=== PATIENT | male | born 1940 | race Caucasian/White ===

== ENCOUNTER 2019-05-12 10:28 | Inpatient (IN) | payer MEDICARE, OTHER ==
[~2019-05-12] VITALS: Ht 180.3 cm; Wt 73.5 kg
[~2019-05-12 10:28] MED LIST: ALBU90OI INH; ALLERCLEAR10 MG PO; ALLERGY PILL; Allopurinol100 MG PO; BUDE10.22 INH; FURO20 PO; HYDCHL25 PO; LEVFLO500 PO; LISI20 PO; MAGOX 400400 MG PO; MONT10T PO; Omega 3 Fish O1 EACH PO; POTA10T PO; ZOCOR20 MG PO
[2019-05-12 12:22] LABS: BASOPHILS ABSOLUTE AUTO 0.05 K/mm3 (0.00-0.23); BASOPHILS PERCENT AUTO 0 % (0-2); EOSINOPHILS ABSOLUTE AUTO 0.01 K/mm3 (0.00-0.68); EOSINOPHILS PERCENT AUTO 0 % (0-6); Hematocrit 36.3 % (37.0-53.0); IMMATURE GRAN ABSOLUTE AUTO 0.15 K/mm3 (0.00-0.10); IMMATURE GRAN PERCENT AUTO 1 % (0-1); LYMPHOCYTES ABSOLUTE AUTO 2.04 K/mm3 (0.84-5.20); LYMPHOCYTES PERCENT AUTO 12 % (21-46); MONOCYTES ABSOLUTE AUTO 2.89 K/mm3 (0.16-1.47); MONOCYTES PERCENT AUTO 16 % (4-13); Mean Corpuscular HGB Conc 33.1 g/dL (31.5-36.5); Mean Corpuscular Volume 100 fL (80-100); Mean Platelet Volume 9.4 fL (9.1-12.4); NEUTROPHILS ABSOLUTE AUTO 12.51 K/mm3 (1.96-9.15); NEUTROPHILS PERCENT AUTO 71 % (41-73); Platelet Count 493 K/mm3 (150-400); RDW Standard Deviation 47.4 fL (35.1-46.3); Red Blood Cell Count 3.64 M/mm3 (4.30-5.90); White Blood Cell Count 17.65 K/mm3 (4.00-11.30)
[2019-05-12 12:38] LABS: International Normalized Ratio 1.07; Prothrombin Time Results 11.4 Sec (9.7-11.5)
[2019-05-12 12:48] LABS: Alanine Aminotransfer (ALT/SGP 36 U/L (12-78); Albumin, Blood 2.7 g/dL (3.4-5.0); Albumin/Globulin Ratio 0.5 (0.8-1.8); Alk Phos 93 U/L (50-136); Anion Gap 8 mmol/L (6-16); Aspartate Aminotrans (AST/SGOT 70 U/L (12-37); Bilirubin, Total 0.7 mg/dL (0.1-1.0); Blood Urea Nitrogen 42 mg/dL (8-24); Bun/Creatinine Ratio 34.4 (12.0-20.0); CO2, Blood 28 mmol/L (21-32); Calcium, Blood 9.7 mg/dL (8.5-10.1); Chloride, Blood 97 mmol/L (98-108); Creatinine, Blood 1.22 mg/dL (0.60-1.20); Globulin, Blood 5.9 g/dL (2.2-4.0); Glomerular Filtration Rate >60 (60-); Glucose, Blood 127 mg/dL (70-99); Potassium, Blood 4.2 mmol/L (3.5-5.5); Sodium, Blood 133 mmol/L (136-145); Total Protein, Blood 8.6 g/dL (6.4-8.2); Troponin I <0.015 ng/mL (0.000-0.040)
[2019-05-12 13:14] LABS: Influenza A Negative (NEGATIVE); Influenza B Negative (NEGATIVE)
[2019-05-12 16:40] LABS: Source, Urine Clean Catch
[2019-05-12 16:50] LABS: Appearance, Urine Clear (Clear); Bilirubin, Urine Neg (Neg); Blood, Urine Neg (Neg); Color, Urine Yellow (P-Yellow); Glucose Qualitative, Urine Neg (Neg); Ketones, Urine 1+ (Neg); Leukocyte Esterase, Urine 1+ (Neg); Nitrite, Urine Neg (Neg); Protein, Urine 2+ (Neg); Urobilinogen, Urine 2+ (Normal)
[2019-05-12 17:03] LABS: Bacteria Few /hpf; Red Blood Cells, Urine 0-2 /hpf (0-2); Squamous Epithelial Cells Few /hpf (Few); White Blood Cells, Urine 0-2 /hpf (0-5)
[2019-05-12] MEDS ORDERED: Aspir 8181 MG PO (17:07)
[2019-05-12] MEDS ORDERED: METO25 PO (17:09)
--- NOTE | 2019-05-12 19:46 | NUR ---
ADMIT NOTE- PT ADMITTED THROUGH THE ED FOR SEPSIS. VS STABLE HR TACHY BUT BP IS WNL. PT HAS FAMILY THAT ARRIVED AT THE BEDSIDE, PROVIDED A PRINTED LIST OF HOME MEDICATIONS PASSED ON TO NIGHT RN IN REPORT. NIGHT RN AWARE ADMIT NOT COMPLETED.
[2019-05-12 22:52] LABS: Adenovirus Not Detected (NOT DETECT); Bordetella pertussis Not Detected (NOT DETECT); Chlamydophila pneumoniae Not Detected (NOT DETECT); Coronavirus 229E Not Detected (NOT DETECT); Coronavirus HKU1 Not Detected (NOT DETECT); Coronavirus NL63 Not Detected (NOT DETECT); Coronavirus OC43 Not Detected (NOT DETECT); Human Metapneumovirus Not Detected (NOT DETECT); Human Rhinovirus/Enterovirus Not Detected (NOT DETECT); Influenza A Not Detected (NOT DETECT); Influenza A/2009-H1 Not Detected (NOT DETECT); Influenza A/H1 Not Detected (NOT DETECT); Influenza A/H3 Not Detected (NOT DETECT); Influenza B Not Detected (NOT DETECT); Mycoplasma pneumoniae Not Detected (NOT DETECT); Parainfluenza Virus 1 Not Detected (NOT DETECT); Parainfluenza Virus 2 Not Detected (NOT DETECT); Parainfluenza Virus 3 Not Detected (NOT DETECT); Parainfluenza Virus 4 Not Detected (NOT DETECT); Respiratory Syncytial Virus Detected (NOT DETECT)
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
[2019-05-13 05:13] LABS: BASOPHILS ABSOLUTE AUTO 0.05 K/mm3 (0.00-0.23); BASOPHILS PERCENT AUTO 0 % (0-2); EOSINOPHILS ABSOLUTE AUTO 0.01 K/mm3 (0.00-0.68); EOSINOPHILS PERCENT AUTO 0 % (0-6); Hematocrit 31.8 % (37.0-53.0); Hemoglobin 10.3 g/dL (13.5-17.5); IMMATURE GRAN ABSOLUTE AUTO 0.08 K/mm3 (0.00-0.10); IMMATURE GRAN PERCENT AUTO 1 % (0-1); LYMPHOCYTES ABSOLUTE AUTO 1.28 K/mm3 (0.84-5.20); LYMPHOCYTES PERCENT AUTO 9 % (21-46); MONOCYTES ABSOLUTE AUTO 2.01 K/mm3 (0.16-1.47); MONOCYTES PERCENT AUTO 14 % (4-13); Mean Corpuscular HGB 32.7 pg (26.0-34.0); Mean Corpuscular HGB Conc 32.4 g/dL (31.5-36.5); Mean Corpuscular Volume 101 fL (80-100); Mean Platelet Volume 9.4 fL (9.1-12.4); NEUTROPHILS PERCENT AUTO 77 % (41-73); Platelet Count 452 K/mm3 (150-400); RDW Standard Deviation 48.7 fL (35.1-46.3); Red Blood Cell Count 3.15 M/mm3 (4.30-5.90); White Blood Cell Count 14.93 K/mm3 (4.00-11.30)
[2019-05-13 05:47] LABS: Alanine Aminotransfer (ALT/SGP 53 U/L (12-78); Albumin, Blood 2.2 g/dL (3.4-5.0); Albumin/Globulin Ratio 0.4 (0.8-1.8); Alk Phos 98 U/L (50-136); Anion Gap 8 mmol/L (6-16); Aspartate Aminotrans (AST/SGOT 88 U/L (12-37); Bilirubin, Total 0.6 mg/dL (0.1-1.0); Blood Urea Nitrogen 33 mg/dL (8-24); Bun/Creatinine Ratio 34.9 (12.0-20.0); CO2, Blood 26 mmol/L (21-32); Calcium, Blood 8.8 mg/dL (8.5-10.1); Chloride, Blood 103 mmol/L (98-108); Creatinine, Blood 0.95 mg/dL (0.60-1.20); Globulin, Blood 5.1 g/dL (2.2-4.0); Glomerular Filtration Rate >60 (60-); Glucose, Blood 125 mg/dL (70-99); Potassium, Blood 3.9 mmol/L (3.5-5.5); Sodium, Blood 137 mmol/L (136-145); Total Protein, Blood 7.3 g/dL (6.4-8.2)
--- NOTE | 2019-05-13 18:03 | NUR ---
SUMMARY- PT ALERT AND ORIENTED. GOT UP WITH PT TODAY, STA IN THE CHAIR APPROX FROM 1500 THROUGH DINNER. ALSO GOT UP TO BEDSIDE COMMODE. PT IS SLOW AND RIGID, ABLE TO SHUFFLE. AFRAID TO FALL. GOOD STRENGTH. TOLERATING FOOD AND FLUIDS. LUNGS DIM IN THE BASES. ROOM AIR. TELE 110'S. HAD ONE PRN FOR HR 110, BROUGHT IT DOWN AND THE BLOOD PRESURE DOWN 91/63- PT ASYMPTOMATIC AND UP IN CHAIR. ANGÉLICA MENDOSA. FAMILY SUPPORTIVE, SON FROM OUT OF TOWN AT BEDSIDE ALL DAY, AND . PT MEDICATED X2 TODAY FOR L SHOULDER PAIN . STATES HE LAID ON IT WRONG DURING HOSP STAY. VICODIN WITH STATED RELEIF
--- NOTE | 2019-05-14 01:04 | NUR ---
INCREASED HEART RATE HOSPICE PHYSICIAN FERNANDO MUÑIZ CALLED AND REPORTED THAT PT'S HEART RATE JUMPED UP TO THE 140'S. CHECKED ON PT. PT SLEEPING AT THE TIME. UPON WAKING PT DENIES ANY SYMPTOMS. PT HAS PO METOPROLOL ORDERED FOR HEART RATE GREATER THAN 110. 25 MG PO METOPROLOL GIVEN. WILL CONTINUE TO MONITOR.
--- NOTE | 2019-05-14 04:46 | NUR ---
SHIFT SUMMARY PT PLEASANT AND COOPERATIVE. PT SLEPT MOST OF THE NIGHT WHEN NOT BEING WOKEN BY STAFF. PT'S HEART RATE IN THE LOW 100'S TO 110'S THROUGHOUT MOST OF THE NIGHT. PT DID HAVE ONE EPISODE WHERE HEART RATE INCREASED TO 140'S FOR A SHORT TIME BUT CAME BACK DOWN TO THE 110'S AFTER PRN PO METOPROLOL. FOREX TRADER STATED THAT RHYTHM DIFFICULT TO INTERPRET. INITIALLY THINKING THAT RHYTHM WAS AFIB OR AFLUTTER BUT UNSURE. CALLING IT AT THIS TIME NARROW QRS TACHYCARDIA. PT INTERMITTENTLY INCONTINENT. BRIEF IN PLACE. MOSTLY USING THE URINAL BUT OCCASSIONALLY NEEDING CHANGED. PT DENIED ANY PAIN THIS EVENING. DRESSINGS TO SMALL WOUNDS ON BUTTOCKS CLEAN, DRY, AND INTACT. OTHERWISE, PT HAD UNEVENTFUL NIGHT. WILL CONTINUE TO MONITOR AND REPORT TO DAY RN.
[2019-05-14 05:36] LABS: BASOPHILS ABSOLUTE AUTO 0.05 K/mm3 (0.00-0.23); BASOPHILS PERCENT AUTO 0 % (0-2); EOSINOPHILS ABSOLUTE AUTO 0.03 K/mm3 (0.00-0.68); EOSINOPHILS PERCENT AUTO 0 % (0-6); Hematocrit 29.9 % (37.0-53.0); Hemoglobin 9.7 g/dL (13.5-17.5); IMMATURE GRAN ABSOLUTE AUTO 0.06 K/mm3 (0.00-0.10); IMMATURE GRAN PERCENT AUTO 1 % (0-1); LYMPHOCYTES ABSOLUTE AUTO 1.35 K/mm3 (0.84-5.20); LYMPHOCYTES PERCENT AUTO 10 % (21-46); MONOCYTES ABSOLUTE AUTO 1.74 K/mm3 (0.16-1.47); MONOCYTES PERCENT AUTO 13 % (4-13); Mean Corpuscular HGB Conc 32.4 g/dL (31.5-36.5); Mean Corpuscular Volume 99 fL (80-100); Mean Platelet Volume 9.7 fL (9.1-12.4); NEUTROPHILS ABSOLUTE AUTO 9.76 K/mm3 (1.96-9.15); NEUTROPHILS PERCENT AUTO 75 % (41-73); Platelet Count 416 K/mm3 (150-400); RDW Standard Deviation 46.7 fL (35.1-46.3); Red Blood Cell Count 3.03 M/mm3 (4.30-5.90); White Blood Cell Count 12.99 K/mm3 (4.00-11.30)
--- NOTE | 2019-05-14 17:38 | NUR ---
SUMMARY- PT ALERT AND ORIENTED. STATES HE IS SLEEPY BECAUSE HE DIDN'T SLEEP LAST NIGHT. PT NAPPED MOST OF THE DAY. DECLINED BREAKFAST AND LUNCH EXCEPT BITES. HE TOLERATED FLUIDS. INCONT OF MOST VOIDS. HAD A SPONGE BATH, BUT REFUSED SHOWER OR TO GET UP IN THE CHAIR. PT HAS BACK PAIN AND L SHOULDER PAIN MEDICATED WITH VICODIN THAT PT STATES RELEIVED PAIN. BLOOD PRESURES BETTER CONTROLLED AND HR REMAINS 110'S MOST OF THE DAY, A FLUTTER.
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
--- NOTE | 2019-05-15 17:35 | NUR ---
PATIENT WAS NPO MOST OF THE DAY LEADING UP TO HIS RENAL BIOPSY. HE WAS FINALLY ABLE TO EAT WHEN HE RETURNED TO HIS ROOM AFTER HIS FINAL CT SCAN. THE PATIENT C/O PAIN TO HIS LEFT SHOULDER EARLIER AND REQUESTED PAIN MEDICATION WITH MINIMAL EFFECTIVENESS; HIS LEFT SIDE APPEARS FLACCID COMPAIRED TO HIS RIGHT. THE PATIENT IS ALERT AND ORIENTED BUTA 2 PERSON MAX ASSIST WITH TRANSFERS. PLEASANT AND COOPERATIVE WITH STAFF. NO ACUTE CHANGES TO REPORT OF AT THIS TIME. WILL CONTINUE TO MONITOR AND PROVIDE CARE NEEDED.
--- NOTE | 2019-05-16 06:46 | NUR ---
SHIFT SUMMARY PATIENT SLIGHTLY CONFUSED OVERNIGHT. HAD NO COMPLAINT OF PAIN. PATIENT WAS TACHYCARDIC OVERNIGHT, CHARGE NURSE NOTIFIED, VITALS TAKEN, PATIENT WAS ASYMPTOMATIC AND DENIED ANY CHEST PAIN OR PRESSURE. IV PATENT AND FLUSHED. BED IN LOWEST POSITION WITH WHEELS LOCKED. CALL LIGHT WITHIN REACH. REPORT GIVEN TO ONCOMING RN.
[2019-05-16 09:26] LABS: Hematocrit 31.1 % (37.0-53.0); Hemoglobin 10.5 g/dL (13.5-17.5)
[2019-05-16 09:54] LABS: Anion Gap 9 mmol/L (6-16); Blood Urea Nitrogen 26 mg/dL (8-24); Bun/Creatinine Ratio 35.4 (12.0-20.0); CO2, Blood 25 mmol/L (21-32); Calcium, Blood 9.4 mg/dL (8.5-10.1); Chloride, Blood 99 mmol/L (98-108); Creatinine, Blood 0.74 mg/dL (0.60-1.20); Glomerular Filtration Rate >60 (60-); Glucose, Blood 130 mg/dL (70-99); Potassium, Blood 3.5 mmol/L (3.5-5.5); Sodium, Blood 133 mmol/L (136-145)
--- NOTE | 2019-05-16 12:50 | NUR ---
PT STARTED SHIFT OUT WITH AN ELEVATED HR RUNNING IN THE 140s. DR NGUYEN WAS NOTIFIED IMMEDIATELY AND INSTRUCTED HR TO BE RECHECKED AFTER PT HAD TAKEN MORNING MEDIATIONS. PT WAS THEN RECHECKED AN HOUR AFTER MEDS WERE GIVEN BY CALLING PCU NURSE. HR WAS STILL IN THE 140s. DR NGUYEN ADDED BP MED AND MADE SOME INCREASED ON MEDICATION TO EMAR. PT WAS GIVEN AND EXTRA 25 MG METOPROLOL SUCCINATE TO MATCH DOSE INCREASE PER DR NGUYEN. HR AT 1207 WAS DOWN TO 114. WILL CONTINUE TO MONITOR.
[2019-05-16 15:10] LABS: A/G RATIO 0.6 (0.7-1.7); ALBUMIN 2.4 g/dL (2.9-4.4); ALPHA-1-GLOBULIN 0.6 g/dL (0.0-0.4); ALPHA-2-GLOBULIN 1.1 g/dL (0.4-1.0); BETA GLOBULIN 0.9 g/dL (0.7-1.3); GAMMA GLOBULIN 1.3 g/dL (0.4-1.8); GLOBULIN, TOTAL 3.8 g/dL (2.2-3.9); IMMUNOGLOBULIN A, QN, SERUM 314 mg/dL (61-437); IMMUNOGLOBULIN G, QN, SERUM 1366 mg/dL (700-1600); IMMUNOGLOBULIN M, QN, SERUM 42 mg/dL (15-143); M-SPIKE Comment: g/dL (Not Observed); PROTEIN, TOTAL, SERUM 6.2 g/dL (6.0-8.5)
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
--- NOTE | 2019-05-16 20:29 | NUR ---
05/16/192019 PT TRANSFERRED TO PCU 6 VIA BED WITH BELONGINGS AND ACCOMPANIED BY SON. CANVAS GOODS SUPERVISORMONIKA CARLSON AT BEDSIDE.
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
--- NOTE | 2019-05-17 08:15 | NUR ---
Shift Summary Pt remains lethargic, confused much of the night. Pt with contracted RUE and appears to have muscle spasms in BLE. Pt incontinent of urine this shift, attends changed and dry at this time. Cardizem gtt infusing at 5 mg/hr at this time - rate between 90-110. BP stable. Concerns this shift regarding pt are as follows: - coarse lungs throughout, weak cough, does not appear in respiratory distress and no changes in oxygen demand noted. Pt remains on RA, unlabored breathing pattern. RT aware. - Family brought concern to this RN regarding pt's recent weight loss. Pt appears frail and profoundly weak. Candy Cutter Hand are weak bilaterally, and pt unable to assist with rolling during repositions. Pt has also had minimal oral intake. - L shoulder pain: pt complains of significant left shoulder pain (refusing medications for pain relief), unable to perform Passive ROM on pt d/t pain. Abduction limited to approx 30 degrees - prior to admission pt able to have full ROM to BUE (per pt and per pt's family). - Overall mentation and appearance is worsening (a concerns the family brought to this RN's attention.) At baseline (two weeks ago) , pt is independant with ADL's and ambulation, at baseline pt is oriented, alert, and has no signs of confusion. This is all per the family at bedside. Based on all previously stated assessment findings, this pt appears to this RN to be declining. This information has been reported to day RN who assumes care, and to the day charge weigher.
--- NOTE | 2019-05-17 12:31 | NUR ---
AM NOTE... ASSUMED CARE OF PT APROX 0700, PT IS A&Ox3 UNABLE TO STATE WHERE HE IS, THE DATE OR THE PRESIDENT. PT IS ON CARDIZEM GTT RUNNINIG AT 5ML/HR. PT'S HR IS IN THE 100'S AFIB. BP IS STABLE AT THIS TIME. PT IS C/O OF WEAKNESS TO HIS HANDS AND LEGS, PT IS UNABLE TO SQUEEZE THIS RN'S HANDS DURING ASSESSMENT STATING IT HURTS TO DO IT. L/S COARSE T/O PT IS ON RA. BT PRESENT AND HYPOACTIVE ABD IS SOFT AND NONTENDER TO PALP. PT'S SON MAHI IS CONCERNED ABOUT MENTAL STATUS, HE STATES INCREASED CONFUSION AND A LARGE INCREASE OF WEAKNESS SINCE YESTERDAY. CALL LIGHT IN REACH WILL CONTINUE TO MONITOR.
--- NOTE | 2019-05-17 17:51 | NUR ---
Pt visit this afternoon. Pt resting in bed upon arrival with Pt's son and Pt's at bedside. Assisted SHOP DIRECTOR Carline with repositioning Pt. Dr Beckwith arrives to discuss plan of care. Dr Beckwith educates on findings, recommendations, and plan of care. Dr Beckwith reports after discussion with oncology docotor both are confident renal mass indicates cancer. Dr Beckwith answers Pt's and family's questions with Pt reporting he would like to pursue treatment aggresively including having kidney remove. Plan is for Pt's RVR to be treated then SNF before having surgery. This RN remained behind to answer questions and listened to concerns. Discussed POLST recently completed with decision to not have hospitalist sign or have implimented. Family requests for Dr Merino come to the hospital for further discussions. No other concerns reported at this time. Spoke with Dr Beckwith by phone and relayed family's request. Dr Beckwith will place oncology consult. Palliative Care will remain available.
--- NOTE | 2019-05-17 18:07 | NUR ---
Initial spiritual care note: Mr. Mckeon was very weak and appears frail. He was sleeping, but awakens to voice. He appeared lucid at time of visit. Son, Jamel and pt's spouse, Dori were present and wanted help with ACP. Advanced Directive and POLST completed. Max did not want heroic measures or aggressive treaments. Son was tearful but appropriate. Advanced Directive signed/witnessed. I hand carried a copy to medical records and several copies made for family. Gentle anticipatory berevement breastfeeding peer counselor provided to good effect. Prayer provided. Family appreciative for education/support. I will remain available.
--- NOTE | 2019-05-17 18:44 | NUR ---
SHIFT SUMMARY... NO ACUTE NEGATIVE CHANGES NOTED THIS SHIFT. PT'S CARDIZEM GTT WAS TURNED OFF APROX 1200, PT HAS MAINTAINED AFIB IN THE 90'S-110'S, VS STABLE. PT STILL HAS MOMENTS OF CONFUSION, SWALLOW STUDY WAS DONE AT BEDSIDE, SPEECH EVAL WAS PLACED TO RULE OUT ASPIRATION. PT AND FAMILY AWARE, HOWEVER PT IS UPSET ABOUT THIS BUT AT THIS TIME IS AGREEABLE WITH PLAN OF CARE. OTHER VS HAVE BEEN STABLE. PT WAS ABLE TO GET UP TO THE BSC WITH 2 P AND FWW, MOD ASSIST. FAMILY AT THE BEDSIDE MOST OF THE SHIFT. ONCOLOGY CONSULT WAS CALLED IN THIS AFTERNOON. CALL LIGHT IN REACH WILL CONTINUE TO MONITOR UNTIL REPORT IS GIVEN TO ONCOMING RN.
--- NOTE | 2019-05-17 19:08 | NUR ---
ASSUMED CARE OF PT AT 1900. REPORT RECEIVED AT BEDSIDE. PT PRESENTS ON BEDSIDE COMMODE. IS ABLE TO MAKE HIS NEEDS KNOWN. MASK INSPECTOR'S IN ROOM TO ASSIST PT BACK TO BED. PT IN NO APPARENT DISTRESS AT THIS TIME. WILL REVIEW CHART AND PLAN OF CARE FOR THIS PT.
--- NOTE | 2019-05-18 | NUR ---
PT WAS ABLE TO TAKE HIS HS MEDS WITH THICKENED FLUIDS. TEACHING OF SAFE SWALLOW WITH CHIN TUCK DONE WITH PT AND WITH ASSIST. PT NEEDS MORE ENCOURAGEMENT AND TEACHING. NO COUGH WITH SWALLOW USING TECHNIQUE.
--- NOTE | 2019-05-18 06:30 | NUR ---
PT CONTINUES ON CARDIZEM DRIP AT 5 MG PER HOUR. VSS. PT HAS TOLERATED ASSISTANCE WITH TURNS IN BED. HAS BEEN INCONTINENT TO URINE AT TIMES THROUGH THE NIGHT. TOOK HIS AM PROTONIX WITH THICKENED FLUIDS. AGAIN NEEDED A LOT OF COACHING AND HANDS ON TO GET PT TO DO CHIN TUCK. WAS ABLE TO SWALLOW WITHOUT COUGH. WILL CONTINUE TO MONITOR PT, AND WILL REPORT OFF TO ONCOMING RN.
--- NOTE | 2019-05-18 08:00 | NUR ---
AM NOTE... ASSUMED CARE OF PT APROX 0700, PT IS A&Ox3 WITH MOMENTS OF FORGETFULNESS/CONFUSION. PT IS ON CARDIZEM GTT 5MG/HR VS STABLE. SWALLOW STUDY ORDERED FOR THIS AM PT IS NPO UNTIL THEN. PT HAS HAS MULTIPLE INCONT EPISODES OF URINE. PT WORKED WITH PT/OT. CALL LIGHT IN REACH WILL CONTINUE MONITOR.
--- NOTE | 2019-05-18 18:25 | NUR ---
Routine spiritual care note: Lengthy visit with pt's spouse and son this afternoon. They expressed worry and fear for pt. Apparently, pt is now adamant that he wants to pursue all medical interventions for healing. Son is trying to honor his father's wishes, but expresses concern that Max will suffer. That said, they are hopeful "this will be an easy surgery to remove his bad kidney." They hope the cancer is easily removed and no further treatment will be required. As of this time, family is uncertain if cancer has spread. Both appear exhausted. Provided theraputic listening, strongly encouraged self-care, and taking one [id number]-time. Pt slept throughout visit and appeared in no distress. Driver Merchandiser services will remain available.
--- NOTE | 2019-05-18 18:44 | NUR ---
SHIFT SUMMARY... NO ACUTE NEGATIVE CHANGES NOTED THIS SHIFT. CARDIZEM GTT WAS TURNED OFF AT APROX 1230, CURRENT RATE IS IN THE 90'S, OTHER VS STABLE. PT WORKED WITH PT/OT THIS SHIFT, FAMILY AT THE BEDSIDE T/O THE DAY. ONCOLOGY WAS CONSULTED AND SAW THE PT TODAY. PT WAS SEEN BY SPEECH THERAPY AND IS TO HAVE SOFT DIET WITH NECTAR THICK FLUIDS BY SPOON. CALL LIGHT IN REACH WILL CONTINUE TO MONITOR UNTIL REPORT IS GIVEN TO ONCOMING RN.
[2019-05-18 19:33] LABS: BASOPHILS ABSOLUTE AUTO 0.03 K/mm3 (0.00-0.23); BASOPHILS PERCENT AUTO 0 % (0-2); EOSINOPHILS ABSOLUTE AUTO 0.08 K/mm3 (0.00-0.68); EOSINOPHILS PERCENT AUTO 1 % (0-6); Hematocrit 29.6 % (37.0-53.0); Hemoglobin 9.6 g/dL (13.5-17.5); IMMATURE GRAN ABSOLUTE AUTO 0.08 K/mm3 (0.00-0.10); IMMATURE GRAN PERCENT AUTO 1 % (0-1); LYMPHOCYTES ABSOLUTE AUTO 1.76 K/mm3 (0.84-5.20); LYMPHOCYTES PERCENT AUTO 13 % (21-46); MONOCYTES ABSOLUTE AUTO 1.57 K/mm3 (0.16-1.47); MONOCYTES PERCENT AUTO 12 % (4-13); Mean Corpuscular HGB Conc 32.4 g/dL (31.5-36.5); Mean Corpuscular Volume 99 fL (80-100); Mean Platelet Volume 9.4 fL (9.1-12.4); NEUTROPHILS ABSOLUTE AUTO 10.01 K/mm3 (1.96-9.15); NEUTROPHILS PERCENT AUTO 74 % (41-73); Platelet Count 465 K/mm3 (150-400); RDW Coefficient Variation 13.1 % (11.7-14.2); White Blood Cell Count 13.53 K/mm3 (4.00-11.30)
[2019-05-18 20:07] LABS: Alanine Aminotransfer (ALT/SGP 54 U/L (12-78); Albumin, Blood 1.9 g/dL (3.4-5.0); Albumin/Globulin Ratio 0.4 (0.8-1.8); Alk Phos 134 U/L (50-136); Anion Gap 5 mmol/L (6-16); Aspartate Aminotrans (AST/SGOT 42 U/L (12-37); Bilirubin, Total 0.6 mg/dL (0.1-1.0); Blood Urea Nitrogen 26 mg/dL (8-24); Bun/Creatinine Ratio 36.2 (12.0-20.0); CO2, Blood 28 mmol/L (21-32); Calcium, Blood 9.4 mg/dL (8.5-10.1); Chloride, Blood 102 mmol/L (98-108); Creatinine, Blood 0.72 mg/dL (0.60-1.20); Globulin, Blood 5.2 g/dL (2.2-4.0); Glomerular Filtration Rate >60 (60-); Glucose, Blood 115 mg/dL (70-99); Potassium, Blood 3.6 mmol/L (3.5-5.5); Sodium, Blood 135 mmol/L (136-145); Total Protein, Blood 7.1 g/dL (6.4-8.2)
--- NOTE | 2019-05-19 05:07 | NUR ---
SHIFT SUMMARY PT VERY SLEEPY THIS EVENING. SLEEPING THROUGH MOST OF THE SHIFT. PT DID WAKE EASILY WHEN WOKEN BY STAFF BUT WOULD QUICKLY FALL BACK ASLEEP WHEN CARE WAS COMPLETE. PT'S SPEECH SLIGHTLY SLURRED AND R FACIAL DROOP NOTED. PT ABLE TO TELL ME HIS NAME AND HIS BIRTHDAY BUT WAS CONFUSED TO WHAT DATE IT WAS OR WHERE HE WAS. PT REMAINED IN BED THROUGHOUT THE NIGHT. INCONTINENT OF URINE. ATTENDS IN PLACE. TURNED AND CHANGED NEEDED. MEPILEX IN PLACE TO LEFT BUTTOCKS, CLEAN, DRY, AND INTACT. OLD WOUNDS NOTED TO R FOOT/BOOKER AND R GREAT TOE AMPUTATED. HEART RATE REMAINED STABLE THIS EVENING IN THE 90'S TO LOW 100'S. SON AT BEDSIDE FOR START OF SHIFT. UPDATE GIVEN. NO ACUTE CHANGES THIS EVENING. WILL CONTINUE TO MONITOR.
--- NOTE | 2019-05-19 16:02 | NUR ---
Met with family to review his decline. They understand his wishes and expression of end of life. Pt placed on comfort care. notified pysician and comfort orders placed. FAmily took break to step out to call family. Sat with pt he was talking to people and became ashen. Called family in he spoke with them then became pale and bradycardic. labored respirations and air hunger small dose of morphine give and pt peacfully . Family assisted with funneral plan and comforted. They donated his cloting and dentures took his phone home.
--- NOTE | 2019-05-19 17:21 | NUR ---
SHIFT SUMMARY PT ALERT AND ORIENTED TO SELF, SITUATION, AND FOLLOWING DIRECTIONS. PT CONFUSED ON PLACE AND DATE. PT REORIENTS EASILY. VS STABLE. HR AFLUTTER 90-110'S. PT COMPLAINED OF PAIN ON AND OFF IN HIS BACK THAT WAS RELIEVED WITH MEDCIATION ADMINISTRATION. PT REPOSITIONED Q2H. PT UP TO CHAIR FOR LUNCH WITH 2 ASSIST AND FWW. FAMILY AT BEDSIDE. WILL CONTINUE TO MONITOR AND REPORT TO ONCOMING RN. CALL LIGHT IN REACH.
[2019-05-20 04:43] LABS: BASOPHILS ABSOLUTE AUTO 0.03 K/mm3 (0.00-0.23); BASOPHILS PERCENT AUTO 0 % (0-2); EOSINOPHILS PERCENT AUTO 1 % (0-6); Hematocrit 32.9 % (37.0-53.0); Hemoglobin 10.4 g/dL (13.5-17.5); IMMATURE GRAN ABSOLUTE AUTO 0.07 K/mm3 (0.00-0.10); IMMATURE GRAN PERCENT AUTO 1 % (0-1); LYMPHOCYTES ABSOLUTE AUTO 1.35 K/mm3 (0.84-5.20); LYMPHOCYTES PERCENT AUTO 11 % (21-46); MONOCYTES ABSOLUTE AUTO 1.37 K/mm3 (0.16-1.47); MONOCYTES PERCENT AUTO 11 % (4-13); Mean Corpuscular HGB 31.3 pg (26.0-34.0); Mean Corpuscular HGB Conc 31.6 g/dL (31.5-36.5); Mean Corpuscular Volume 99 fL (80-100); Mean Platelet Volume 9.7 fL (9.1-12.4); NEUTROPHILS ABSOLUTE AUTO 9.06 K/mm3 (1.96-9.15); NEUTROPHILS PERCENT AUTO 76 % (41-73); Platelet Count 496 K/mm3 (150-400); RDW Coefficient Variation 13.2 % (11.7-14.2); Red Blood Cell Count 3.32 M/mm3 (4.30-5.90); White Blood Cell Count 11.98 K/mm3 (4.00-11.30)
[2019-05-20 05:08] LABS: Magnesium, Blood 1.6 mg/dL (1.6-2.4)
[2019-05-20 05:09] LABS: Alanine Aminotransfer (ALT/SGP 58 U/L (12-78); Albumin, Blood 1.8 g/dL (3.4-5.0); Albumin/Globulin Ratio 0.3 (0.8-1.8); Alk Phos 142 U/L (50-136); Anion Gap 6 mmol/L (6-16); Aspartate Aminotrans (AST/SGOT 47 U/L (12-37); Bilirubin, Total 0.7 mg/dL (0.1-1.0); Blood Urea Nitrogen 27 mg/dL (8-24); Bun/Creatinine Ratio 35.4 (12.0-20.0); CO2, Blood 27 mmol/L (21-32); Calcium, Blood 9.3 mg/dL (8.5-10.1); Chloride, Blood 103 mmol/L (98-108); Creatinine, Blood 0.76 mg/dL (0.60-1.20); Globulin, Blood 5.3 g/dL (2.2-4.0); Glomerular Filtration Rate >60 (60-); Glucose, Blood 121 mg/dL (70-99); Potassium, Blood 3.9 mmol/L (3.5-5.5); Sodium, Blood 136 mmol/L (136-145); Total Protein, Blood 7.1 g/dL (6.4-8.2)
--- NOTE | 2019-05-20 05:33 | NUR ---
SHIFT SUMMARY PT ALERT AND ORIENTED TO SELF; SON AT BEDSIDE APPROXIMATELY 2029; VSS; O2 SATS >93 ON RA; PT UP TO BSC W/ GAIT BELT & FWW; C/O LOWER BACK PAIN AND MEDICATED PER EMAR 1X THIS SHIFT; Q2 TURNS W/ PILLOWS TO RELIEVE PRESSURE; DENIES NEEDS AT THIS TIME; CALL LIGHT IN REACH; BED IN LOWEST POSITION; WILL CONTINUE TO MONITOR CLOSELY UNTIL HAND OFF TO DAY SHIFT RN.
--- NOTE | 2019-05-20 16:33 | NUR ---
SHIFT SUMMARY AND TRANSFER NOTE ASSUMED CARE OF PT AT APPROX 0700. PT RESTING IN BED, WAKES EASILY WITH VERBAL STIMULI; PT A&Ox3; CALM AND COOPERATIVE WITH CARE. 2 PERSON ASSIST WITH FWW AND GB TO RECLINER. PT SOB WITH EXERTION, SPO2 >90% ON RA; TACHYPNIC WITH ACTIVITY. PT DENIES PAIN, CHEST PAIN/PRESSURE, NAUSEA AND DIZZINESS T/O SHIFT. PER TELE PT AFLUTTER AT 106; HR TRENDING UP AT APPROX 1000 AM; MEDICATED WITH SCHEDULE METOPROLOL; TRENDING DOWN AND CURRENTLY AVE 80-90'S. OTHER VSS. NO OTHER ACUTE CHANGES NOTED. TELEPHONE REPORT GIVEN TO MARY ANNE PATINO ON MEDICAL; PT TRANSFERED TO ROOM AT APPROX 1620. ATTEMPTED TO CALL SPOUSE AND SON PER PT REQUEST TO INFORM OF TRANSFER
--- NOTE | 2019-05-20 16:36 | NUR ---
PT ARRIVED TO FLOOR AT 1630. PT SEEMS TIRED ANSWERED WHEN TALKED TO, BUT QUIET. PT GIVEN REMOTE AND BED IN LOWEST POSITION WITH BED ALARM IN PLACE. WILL CONTINUE TO MONITOR.
--- NOTE | 2019-05-20 17:36 | NUR ---
PT RESTING IN BED AT THIS TIME. PT STILL SEEMS TIRED AND DOESN'T REALLY WANT TO TALK MUCH. PT HAS DINNER AND HAS BEEN HARD TO GET INTERESTED IN HIS DINNER DENIES PAIN AT THIS TIME WILL CONTINUE TO MONITOR.
--- NOTE | 2019-05-21 05:40 | NUR ---
INSTRUCTOR EXTENSION WORK SUMMARY NO ACUTE CHANGES THIS SHIFT. PT AAOX3 WITH SOME INTERMITTENT CONFUSION/FORGETFULNESS. PT HAS RESTED MOST OF THE NIGHT. BED ALARM ON FOR SAFETY PT CAN BE IMPULSIVE AT TIMES, HOWEVER PT HAS NOT ATTEMPTED TO GET OUT OF BED WITHOUT ASSISTANCE TONIGHT. TELE HAS SHOWN AFIB/AFLUTTER WITH AN AVG HR OF 90-100. NO COMPLAINTS/CONCERNS FROM PT. AWAITING SNF PLACEMENT POSSIBLY ON WEDNESDAY. VSS, WILL CONTINUE TO MONITOR.
--- NOTE | 2019-05-21 17:10 | NUR ---
PT AOX3 WITH SOME CONFUSION. PT CAN CALL WHEN NEEDED, BUT CAN BE IMPULSIVE IF THE NEED STRIKES HIM. PT WAS A ONE PERSON WITH WALKER AND GATE BELT TO RESTROOM. PT WAS WEAK, BUT DID WELL GOING SLOW. PT DOES NOT FEEL REALLY STRONG WALKING AND NEEDS SOME SUPPORT TO STEADY HIM. PT RESTING IN BED AT THIS TIME AND HAS BED ALARM IN PLACE. PT HAS NOT BEEN EATING WELL AN ENSURE HAS BEEN ADDED TO HIS MEALS TO HELP WITH CALORIE INTAKE. WILL CONTINUE TO MONITOR.
[2019-05-22 05:05] LABS: BASOPHILS ABSOLUTE AUTO 0.05 K/mm3 (0.00-0.23); BASOPHILS PERCENT AUTO 0 % (0-2); EOSINOPHILS ABSOLUTE AUTO 0.16 K/mm3 (0.00-0.68); EOSINOPHILS PERCENT AUTO 1 % (0-6); Hematocrit 30.4 % (37.0-53.0); Hemoglobin 9.9 g/dL (13.5-17.5); IMMATURE GRAN ABSOLUTE AUTO 0.05 K/mm3 (0.00-0.10); IMMATURE GRAN PERCENT AUTO 0 % (0-1); LYMPHOCYTES ABSOLUTE AUTO 1.52 K/mm3 (0.84-5.20); LYMPHOCYTES PERCENT AUTO 12 % (21-46); MONOCYTES ABSOLUTE AUTO 1.37 K/mm3 (0.16-1.47); MONOCYTES PERCENT AUTO 11 % (4-13); Mean Corpuscular HGB 31.8 pg (26.0-34.0); Mean Corpuscular HGB Conc 32.6 g/dL (31.5-36.5); Mean Corpuscular Volume 98 fL (80-100); Mean Platelet Volume 9.6 fL (9.1-12.4); NEUTROPHILS ABSOLUTE AUTO 9.26 K/mm3 (1.96-9.15); NEUTROPHILS PERCENT AUTO 75 % (41-73); Platelet Count 536 K/mm3 (150-400); RDW Coefficient Variation 13.2 % (11.7-14.2); RDW Standard Deviation 47.7 fL (35.1-46.3); Red Blood Cell Count 3.11 M/mm3 (4.30-5.90); White Blood Cell Count 12.41 K/mm3 (4.00-11.30)
--- NOTE | 2019-05-22 05:12 | NUR ---
FREIGHT RATE ANALYST SUMMARY NO ACUTE CHANGES THIS SHIFT. PT AAOX3 WITH SOME INTERMITTENT CONFUSION/FORGETFULNESS. MEDICATED FOR PAIN X1 AT START OF SHIFT PER EMAR. PT HAS BEEN ABLE TO REST THROUGH THE NIGHT. PT DENIES SOB. VSS, WILL CONTINUE TO MONITOR.
[2019-05-22 05:33] LABS: Alanine Aminotransfer (ALT/SGP 53 U/L (12-78); Albumin, Blood 1.9 g/dL (3.4-5.0); Albumin/Globulin Ratio 0.4 (0.8-1.8); Alk Phos 136 U/L (50-136); Anion Gap 6 mmol/L (6-16); Aspartate Aminotrans (AST/SGOT 41 U/L (12-37); Bilirubin, Total 0.5 mg/dL (0.1-1.0); Blood Urea Nitrogen 23 mg/dL (8-24); Bun/Creatinine Ratio 31.9 (12.0-20.0); CO2, Blood 27 mmol/L (21-32); Calcium, Blood 9.2 mg/dL (8.5-10.1); Chloride, Blood 104 mmol/L (98-108); Creatinine, Blood 0.72 mg/dL (0.60-1.20); Globulin, Blood 5.2 g/dL (2.2-4.0); Glomerular Filtration Rate >60 (60-); Glucose, Blood 115 mg/dL (70-99); Potassium, Blood 3.9 mmol/L (3.5-5.5); Sodium, Blood 137 mmol/L (136-145); Total Protein, Blood 7.1 g/dL (6.4-8.2)
--- NOTE | 2019-05-22 19:40 | NUR ---
SHIFT SUMMARY PT STATING HE HASN'T GOTTEN ANY THERAPIES BUT 3 TIMES WHILE HE IS HERE AND WHATS THE POINT OF STAYING HERE. DISCUSSED WITH PT HE HAS BEEN SEEN REGULARLY FOR THE LAST WEEK. OFFERED TO PROVIDE PT A W/C HIS FAMILY CAN PUSH HIM OUTSIDE FOR A BREAK FROM THE ROOM. THIS WAS DONE AND PT TOOK A LONG NAP WHEN HE RETURNED. HAS BEEN UP TO CHAIR 1 OR 2 TIMES TODAY AND HAS BEEN A 1 PERSON ASSIST TO THE BATHROOM USING A FWW AND GAIT BELT. DRESSINGS CHANGED TO BUTTOCK WOUNDS. DR. FARIAS CALLED AND REPORTED HE WOULD BE HERE BETWEEN 78-8 TONIGHT.
--- NOTE | 2019-05-23 04:37 | NUR ---
PHOTOGRAPHIC PROCESSOR SUMMARY PT AAOX3 AND PLEASANT ALTHOUGH IS VERY ANXIOUS TO BE DISCHARGED. DR FARIAS FROM NEUROLOGY IN TO SEE PT AT THE START OF SHIFT. DR FARIAS REPORTED TO THIS RN THAT HE DID NOT SUSPECT GBS AND THAT A LUMBAR PUNCTURE WAS NOT NEEDED AND ASKED THAT THE XARELTO ORDER BE RESTARTED. ALSO RECIEVED ORDERS FOR ADDITIONAL LAB WORK THIS AM. VSS, WILL CONTINUE TO MONITOR.
[2019-05-23 06:25] LABS: Thyroid Stimulating Hormone 1.35 uIU/mL (0.360-4.800)
[2019-05-23] MEDS ORDERED: SENN187 (11:14)
[2019-05-23] MEDS ORDERED: XARELTO20 MG PO (11:15)
[2019-05-23] MEDS ORDERED: METO50ER (11:16)
--- NOTE | 2019-05-23 12:00 | NUR ---
PT TRANSFERRED TO [facility] AT 1140 VIA W/C. HAD BEEN NOTIFIED OF PENDING DISCHARGE AT 1100. REPORT CALLED TO AVEL. PT COOPERATIVE WITH TRANSFER TO W/ AND USED URINAL PRIOR TO DISCHARGING. DRESSINGS INTACT TO BUTTOCKS WITH PHOTOS TAKEN YESTERDAY. TO [facility] VIA W/C.
== END 2019-05-23 11:42 | DRG 871 ==
LOC: ER 10:28 → MEDS 17:44 → PCU 17:44 → MEDS 18:39 → PCU 05-16 20:16 → MEDS 05-20 16:22 → ENPENDDIS 05-23 10:35 → MEDS 05-23 11:42
PROVIDERS: Emergency Medicine; Internal Medicine; Physician Assistant; Psychiatry & Neurology Neurology; ADMIT Internal Medicine
DX: A41.9 Sepsis, unspecified organism (principal); J96.00 Acute respiratory failure, unspecified whether with hypoxia or hypercapnia; J12.1 Respiratory syncytial virus pneumonia; E43 Unspecified severe protein-calorie malnutrition; I48.92 Unspecified atrial flutter; R64 Cachexia; E87.1 Hypo-osmolality and hyponatremia; C64.9 Malignant neoplasm of unspecified kidney, except renal pelvis; I50.32 Chronic diastolic (congestive) heart failure; I11.0 Hypertensive heart disease with heart failure; R65.20 Severe sepsis without septic shock; J44.9 Chronic obstructive pulmonary disease, unspecified; F03.90 Unspecified dementia, unspecified severity, without behavioral disturbance, psychotic disturbance, mood disturbance, and anxiety; M10.9 Gout, unspecified; E78.5 Hyperlipidemia, unspecified; M48.00 Spinal stenosis, site unspecified; D64.9 Anemia, unspecified; I35.0 Nonrheumatic aortic (valve) stenosis; E88.09 Other disorders of plasma-protein metabolism, not elsewhere classified; R91.8 Other nonspecific abnormal finding of lung field; Z51.5 Encounter for palliative care; Z85.46 Personal history of malignant neoplasm of prostate; Z90.79 Acquired absence of other genital organ(s); Z92.21 Personal history of antineoplastic chemotherapy; Z92.3 Personal history of irradiation; Z79.82 Long term (current) use of aspirin; Z79.899 Other long term (current) drug therapy
CPT/HCPCS: 0099U; 36415; 50200; 70450; 70551; 71046; 71250; 72146; 72148; 74177; 77012; 80048; 80053; 81001; 82550; 82607; 82746; 83090; 83605; 83735; 84165; 84443; 84484; 85014; 85018; 85025; 85610; 85651; 85730; 86140; 87040; 87086; 87804; 88305; 88341; 88342; 90686; 92526; 92610; 93005; 93010; 93306; 94640; 94760; 96361; 96374; 97110; 97112; 97162; 97166; 97530; 97535; 99285-25; A9270; A9270-GY; C9113; G0008; J0696; J1644; J7030; Q9967

== ENCOUNTER 2019-09-01 16:30 | Inpatient (IN) | payer OTHER, MEDICARE ==
[~2019-09-01] VITALS: Ht 177.8 cm; Wt 62.1 kg
[~2019-09-01 16:30] MED LIST changes: +Aspir 8181 MG PO; +METO25 PO; +METO50ER PO; +SENN187 PO; +XARELTO20 MG PO
[2019-09-01 17:13] LABS: Hematocrit 34.3 % (37.0-53.0); Hemoglobin 10.9 g/dL (13.5-17.5); Mean Corpuscular HGB 32.3 pg (26.0-34.0); Mean Corpuscular HGB Conc 31.8 g/dL (31.5-36.5); Mean Corpuscular Volume 102 fL (80-100); Mean Platelet Volume 10.4 fL (9.1-12.4); Platelet Count 115 K/mm3 (150-400); RDW Coefficient Variation 16.5 % (11.7-14.2); RDW Standard Deviation 62.6 fL (35.1-46.3); Red Blood Cell Count 3.37 M/mm3 (4.30-5.90); White Blood Cell Count 7.26 K/mm3 (4.00-11.30)
[2019-09-01 17:31] LABS: Albumin, Blood 2.5 g/dL (3.4-5.0); Albumin/Globulin Ratio 0.6 (0.8-1.8); Bilirubin, Total 0.5 mg/dL (0.1-1.0); Bun/Creatinine Ratio 16.9 (12.0-20.0); Calcium, Blood 8.2 mg/dL (8.5-10.1); Creatinine, Blood 1.78 mg/dL (0.60-1.20); Globulin, Blood 3.9 g/dL (2.2-4.0); Potassium, Blood 3.6 mmol/L (3.5-5.5); Total Protein, Blood 6.4 g/dL (6.4-8.2); Troponin I 0.057 ng/mL (0.000-0.040)
[2019-09-01 17:32] LABS: BAND PERCENT MAN 20 % (0-8); BASOPHILS PERCENT MAN 0 % (0-2); EOSINOPHILS PERCENT MAN 0 % (0-6); LYMPHOCYTES PERCENT MAN 7 % (21-46); METAMYELOCYTE ABSOLUTE MAN 0.65 K/mm3 (0.00-0.00); METAMYELOCYTE PERCENT MAN 9 % (0-0); MONOCYTES ABSOLUTE MAN 0.14 K/mm3 (0.16-1.47); MONOCYTES PERCENT MAN 2 % (4-13); NEUTROPHILS ABSOLUTE MAN 5.95 K/mm3 (1.96-9.15); SEG NEUTROPHILS PERCENT MAN 62 % (41-73); TOTAL CELLS COUNTED 100
[2019-09-01 19:07] LABS: International Normalized Ratio 1.25; Prothrombin Time Results 13.2 Sec (9.7-11.5)
--- NOTE | 2019-09-01 23:26 | NUR ---
PCU ADMIT PT BROUGHT TO PCU-04 FROM ER BY BUCK @ APPROX 2120. PT A&O X4. PT ABLE TO STAND AND WEAKLY TURN TO PCU BED, HOLDING ONTO FURNITURE. PER ER TRIAGE NOTE, PT FELL AT BIMART. PT DENIES HAVING FALLEN, STATING "I DIDN'T FALL. I GOT WEAK AND LOWERED MYSELF TO THE GROUND." PT DENIES ANY HX OF FALLS WELL. PT DENIES SOB. DENIES ANY PAIN OR DISCOMFORT. VSS. HEPARIN GTT INFUSING PER ORDERS UPON ARRIVAL TO UNIT FROM ER. MONITOR SHOWS AFIB W/ BBB, HR 90's. SPO2 > 92% ON RA. +3 EDEMA NOTED TO TOP OF R FOOT. WOUND ALSO NOTED TO OUTER R ANKLE W/ PT REPORT OF WOUND BEING A "BED BUG BITE." PHOTO TAKEN OF WOUND AND PLACED IN CHART. PT ALSO W/ R BIG TOE AMPUTATION. BLE COOL AND DUSKY. PULSES PRESENT. PT WEARING JEANS, NOT ALLOWING REMOVAL OF PANTS FOR ASSESSMENT. PT DENIES ANY FURTHER SKIN ISSUES. WHEN ASKING ABOUT LEGS AND BACKSIDE SPECIFICALLY PT STATES, "OH THEY'RE PERFECT." PT ORIENTED TO RM/UNIT. WILL CONTINUE TO MONITOR AND PROVIDE CARE.
[2019-09-02 00:48] LABS: Hematocrit 33.9 % (37.0-53.0); Hemoglobin 10.8 g/dL (13.5-17.5); Mean Corpuscular HGB 32.6 pg (26.0-34.0); Mean Corpuscular HGB Conc 31.9 g/dL (31.5-36.5); Mean Corpuscular Volume 102 fL (80-100); Mean Platelet Volume 10.5 fL (9.1-12.4); Platelet Count 113 K/mm3 (150-400); RDW Coefficient Variation 16.4 % (11.7-14.2); RDW Standard Deviation 62.7 fL (35.1-46.3); Red Blood Cell Count 3.31 M/mm3 (4.30-5.90); White Blood Cell Count 6.46 K/mm3 (4.00-11.30)
[2019-09-02 01:06] LABS: Bun/Creatinine Ratio 15.7 (12.0-20.0); Calcium, Blood 8.3 mg/dL (8.5-10.1); Creatinine, Blood 2.17 mg/dL (0.60-1.20); Potassium, Blood 4.1 mmol/L (3.5-5.5)
[2019-09-02 01:46] LABS: BAND PERCENT MAN 30 % (0-8); BASOPHILS PERCENT MAN 0 % (0-2); EOSINOPHILS PERCENT MAN 0 % (0-6); LYMPHOCYTES ABSOLUTE MAN 0.32 K/mm3 (0.84-5.20); LYMPHOCYTES PERCENT MAN 5 % (21-46); MONOCYTES ABSOLUTE MAN 0.25 K/mm3 (0.16-1.47); MONOCYTES PERCENT MAN 4 % (4-13); NEUTROPHILS ABSOLUTE MAN 5.87 K/mm3 (1.96-9.15); SEG NEUTROPHILS PERCENT MAN 61 % (41-73); TOTAL CELLS COUNTED 100
--- NOTE | 2019-09-02 05:10 | NUR ---
SHIFT SUMMARY PT CONTINUES TO BE A&O X4. VSS. MONITOR SHOWING AFIB BBB, HR 80's-110's. SPO2 > 92% ON RA. PT DENIES CP OR OTHER PAIN/DISCOMFORT THIS SHIFT. PT AWAITING CARDIOLOGY CONSULT. HEPARIN GTT INFUSING PER ORDERS. PT NPO FOR POSSIBLE CATH. WILL CONTINUE TO MONITOR AND PROVIDE CARE UNTIL REPORT OFF TO DAY SHIFT RN.
--- NOTE | 2019-09-02 08:10 | NUR ---
ASSUMED CARE AT 0700, RESTING IN BED SUPINE. A/A/OX4, DENIES CP OR SOB. VSS, HEPARIN INFUSING AT 13UNITS/KG. WILL CONTINUE TO MONITOR.
--- NOTE | 2019-09-02 08:49 | NUR ---
Reviewed the med rec with the patient and his . She has brought in a more recent medication list from his discharge from [facility] on 06/16/2019.
--- NOTE | 2019-09-02 11:43 | NUR ---
echocardiogram complete
--- NOTE | 2019-09-02 18:40 | NUR ---
HEPARIN DC'D PER ORDERS AT 1300.
[2019-09-03 04:38] LABS: BASOPHILS ABSOLUTE AUTO 0.02 K/mm3 (0.00-0.23); BASOPHILS PERCENT AUTO 0 % (0-2); Hematocrit 30.4 % (37.0-53.0); Hemoglobin 9.8 g/dL (13.5-17.5); Mean Corpuscular HGB 31.9 pg (26.0-34.0); Mean Corpuscular HGB Conc 32.2 g/dL (31.5-36.5); Mean Platelet Volume 11.4 fL (9.1-12.4); Platelet Count 90 K/mm3 (150-400); RDW Coefficient Variation 16.3 % (11.7-14.2); RDW Standard Deviation 59.6 fL (35.1-46.3); Red Blood Cell Count 3.07 M/mm3 (4.30-5.90); White Blood Cell Count 8.96 K/mm3 (4.00-11.30)
[2019-09-03 04:41] LABS: EOSINOPHILS ABSOLUTE AUTO 0.01 K/mm3 (0.00-0.68); EOSINOPHILS PERCENT AUTO 0 % (0-6); IMMATURE GRAN ABSOLUTE AUTO 0.04 K/mm3 (0.00-0.10); IMMATURE GRAN PERCENT AUTO 0 % (0-1); LYMPHOCYTES ABSOLUTE AUTO 0.53 K/mm3 (0.84-5.20); LYMPHOCYTES PERCENT AUTO 6 % (21-46); MONOCYTES PERCENT AUTO 10 % (4-13); Mean Corpuscular Volume 99 fL (80-100); NEUTROPHILS ABSOLUTE AUTO 7.46 K/mm3 (1.96-9.15); NEUTROPHILS PERCENT AUTO 83 % (41-73)
[2019-09-03 04:56] LABS: BAND PERCENT MAN 8 % (0-8); BASOPHILS PERCENT MAN 0 % (0-2); EOSINOPHILS PERCENT MAN 0 % (0-6); LYMPHOCYTES ABSOLUTE MAN 0.62 K/mm3 (0.84-5.20); LYMPHOCYTES PERCENT MAN 7 % (21-46); MONOCYTES PERCENT MAN 9 % (4-13); NEUTROPHILS ABSOLUTE MAN 7.52 K/mm3 (1.96-9.15); SEG NEUTROPHILS PERCENT MAN 76 % (41-73); TOTAL CELLS COUNTED 100
[2019-09-03 05:00] LABS: Albumin, Blood 2.1 g/dL (3.4-5.0); Albumin/Globulin Ratio 0.6 (0.8-1.8); Bilirubin, Total 0.9 mg/dL (0.1-1.0); Bun/Creatinine Ratio 17.9 (12.0-20.0); Calcium, Blood 8.1 mg/dL (8.5-10.1); Creatinine, Blood 2.63 mg/dL (0.60-1.20); Globulin, Blood 3.7 g/dL (2.2-4.0); Magnesium, Blood 1.5 mg/dL (1.6-2.4); Potassium, Blood 3.5 mmol/L (3.5-5.5); Total Protein, Blood 5.8 g/dL (6.4-8.2)
[2019-09-03 05:01] LABS: Percent Saturation 3.3 % (20.0-50.0)
[2019-09-03 05:06] LABS: Thyroid Stimulating Hormone 1.59 uIU/mL (0.360-4.800)
--- NOTE | 2019-09-03 05:40 | NUR ---
SHIFT SUMMARY PT A&O X4. VSS. NO EVENTS OVER NIGHT. PT NPO FOR NUC MED TEST THIS AM. WILL CONTINUE TO MONITOR AND PROVIDE CARE UNTIL REPORT OFF TO DAY SHIFT RN.
--- NOTE | 2019-09-03 09:17 | NUR ---
ASSUMED CARE AT 0700, REPORT FROM MONIKA CARBONE. REENTERED ROOM AT APPROX 0720 TO ASSESS VITALS AND SHIFT ASSESMENT. LAYING FLAT SUPINE MOANING, PALE AND DIAPHERETIC, STATES IS HAVING ABD PAIN FROM HUNGER PAINS. CALLED CURB BUILDER TO ROOM PAIN APPEARS OUT OF PORPORTION FOR HUNGER PAINS. BT'S HYPOACTIVE, ABD GUARDED AND PT POINTS TO MID TO UPPER ABDOMEN SOURCE OF PAIN. EKG COMPLETE. DR. MOELLER AND DR. RIOS TO BEDSIDE. MEDICATED WITH 2MG MORPHINE PER DR. MOELLER IV. CT SCAN ORDERED, TAKEN TO CT.
--- NOTE | 2019-09-03 09:24 | NUR ---
DR. LEPE TO BEDSIDE TO DISCUSS SURGERY. VERBAL ORDER GIVEN FOR 2MG IV MORPHINE, 40 MG IV PROTONIX AND D5 FLUIDS TO BE BOLUSED AT THIS TIME.
--- NOTE | 2019-09-03 11:07 | NUR ---
"DAY SURGERY RN | COVID TEST TEST ORDER RECEIVED BY THIS RN. ANITA FRANK OBTAINED SPECIMEN FROM PATIENT IN OR. ORDER PROCESSED AND HAND-DELIVERED TO LAB."
--- NOTE | 2019-09-03 14:40 | NUR ---
RETURNED FROM PACU FOLLOWING SURGERY AT 1315. SLEEPY BUT ARROUSABLE TO VOICE. VSS, JPEG DRAIN AND PICCO DRESSING IN PLACE CLEAN DRY AND INTACT. DENIES PAIN AT THIS TIME. FAMILY AT BEDSIDE, WILL CONTINUE TO MONITOR.
--- NOTE | 2019-09-03 18:18 | NUR ---
SHIFT SUMMARY; LAPROSCOPIC ULCER REPAIR COMPLETE TODAY. RETURNED TO ROOM AT APPROX 1315. SLEEPY IN AFTERNOON WAKING TO VERBAL STIMULI. CONTINUOUS BIOX TO MONITOR SATS, NG INPLACE TO INTERMITANT LOW SUCTION. SIERRA DRAINING CLEAR YELLOW URINE. OTOLARYNGOLOGY REP WITH NO PT ADMINISTRATION DURING SHIFT. KELLY DRESSING IN PLACE CLEAN AND DRY. JPEG DRAIN DRAINING SERISANGUINOUS DRAINAGE. WILL CONTINUE TO MONITOR UNTIL CHANGE OF SHIFT.
--- NOTE | 2019-09-03 22:00 | NUR ---
ASSUMED CARE Report recieved from Suzanne Shell RN and care assumed at 1900. Pt lying in bed, 15 degree elevation. Pt denying pain, VSS, conversing appropriately. Alert and oriented. See shift assessment for detailed systems assessment. Midline incision with dressing intact, red drainage noted to dressing. KELLY wound vac in place. Miguel Rios to bulb suction draining serosang fluid. Vaz cath in place. NG tube to low intermittent suction. Pending stool sample for h pylori, no BM this shift. Pt with oxygenation stable on RA. Uses call light to express needs. Pt tolerating icechips. LADLE REPAIRMAN pump infusing PRN, pt control button within reach. call light within reach. Bed low and locked. No acute concerns to note.
[2019-09-04 04:01] LABS: BASOPHILS ABSOLUTE AUTO 0.02 K/mm3 (0.00-0.23); BASOPHILS PERCENT AUTO 0 % (0-2); Hematocrit 30.9 % (37.0-53.0); Hemoglobin 10.2 g/dL (13.5-17.5); LYMPHOCYTES ABSOLUTE AUTO 0.51 K/mm3 (0.84-5.20); LYMPHOCYTES PERCENT AUTO 8 % (21-46); MONOCYTES ABSOLUTE AUTO 0.32 K/mm3 (0.16-1.47); MONOCYTES PERCENT AUTO 5 % (4-13); Mean Corpuscular HGB 32.3 pg (26.0-34.0); Mean Corpuscular Volume 98 fL (80-100); Mean Platelet Volume 12.3 fL (9.1-12.4); Platelet Count 61 K/mm3 (150-400); RDW Coefficient Variation 16.1 % (11.7-14.2); RDW Standard Deviation 58.6 fL (35.1-46.3); Red Blood Cell Count 3.16 M/mm3 (4.30-5.90); White Blood Cell Count 6.47 K/mm3 (4.00-11.30)
[2019-09-04 04:03] LABS: EOSINOPHILS PERCENT AUTO 0 % (0-6); IMMATURE GRAN ABSOLUTE AUTO 0.04 K/mm3 (0.00-0.10); IMMATURE GRAN PERCENT AUTO 1 % (0-1); NEUTROPHILS ABSOLUTE AUTO 5.58 K/mm3 (1.96-9.15); NEUTROPHILS PERCENT AUTO 86 % (41-73)
[2019-09-04 04:22] LABS: Albumin, Blood 1.8 g/dL (3.4-5.0); Albumin/Globulin Ratio 0.5 (0.8-1.8); Bilirubin, Total 0.7 mg/dL (0.1-1.0); Calcium, Blood 7.7 mg/dL (8.5-10.1); Creatinine, Blood 2.52 mg/dL (0.60-1.20); Globulin, Blood 3.5 g/dL (2.2-4.0); Potassium, Blood 3.6 mmol/L (3.5-5.5); Total Protein, Blood 5.3 g/dL (6.4-8.2)
--- NOTE | 2019-09-04 05:58 | NUR ---
SHIFT SUMMARY No acute events overnight. pt is s/p laproscopic ulcer repair with serina drain to bulb suction with serosang output. KELLY wound vac midline abdomen with dressing containing small amount of red drainage consistant with start of shift. pt compliant with q2 hour turns, sena cath d/c'd this AM, awaiting first void. Jorden consult in place, orders recieved. Plan for renal U/S today per dr. kothari. pt initially admitted for NSTEMI, no acute chest pain or pressure, no events on tele. Pt denies SOB or chest tightness. NG tube to low intermittent suction, little output. Pt consuming 1-2 ice chips every 1-2 hours. minimal PO intact. D5 in LR infusing at 100 mls/hr per orders. No BM this shift, uncollected sample. Per pt, pain has been managed this shift with PRESSURE TANK OPERATOR pump. At rest, pt is groaning but denies uncontrolled pain when asked. No acute changes from initial shift assessment. Will continue to monitor.
--- NOTE | 2019-09-04 13:30 | NUR ---
UPDATE PT WORKING WITH PT AND NG TUBE DISPLACED. DR. LEPE CALLED AND NOTIFIED. NEW ORDERS TO HOLD NG TUBE AND PLACE TOMORROW IF PT NEEDS IT. MORPHINE INSIDE HORTICULTURAL SPECIALTY GROWER DISCONTINUED. WILL CONTINUE TO MONITOR CLOSELY.
--- NOTE | 2019-09-04 14:51 | NUR ---
UPDATE PT ALERT AND ORIENTED AT THIS TIME, WITH SOME MILD CONFUSION. VS STABLE. HR AFIB WITH BBB. BP STABLE. PT DENIES ANY PAIN. PT DENIES ANY NAUSEA AT THIS TIME. PT VOIDED ONCE SINCE SIERRA CATHETER REMOVED AT O530. PT REPOSITIONED Q2H AND NEEDED. LR INFUSING PER ORDERS. REPORT GIVEN TO SURGICAL FLOOR RN. PT TO BE TAKEN OVER BY BED.
--- NOTE | 2019-09-04 15:30 | NUR ---
ARRIVAL TO UNIT PT ARRIVED VIA BED. PLEASANT BUT CONFUSED. SON AT BEDSIDE. SARAH WNL. PICCO VAC MIDLINE HAS SMALL DRAINAGE. DENIES N/V. SMALL AMOUNT ICE CHIPS GIVEN.
--- NOTE | 2019-09-04 19:00 | NUR ---
SUMMARY SINCE ARRIVAL TO UNIT, PT HAS REMAIN CONFUSED BUT REORIENTS EASILY. VOIDING. NO N/V.
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
[2019-09-05 04:01] LABS: Hematocrit 31.8 % (37.0-53.0); Hemoglobin 10.3 g/dL (13.5-17.5)
[2019-09-05 04:18] LABS: Albumin, Blood 1.7 g/dL (3.4-5.0); Anion Gap 10 mmol/L (6-16); Blood Urea Nitrogen 65 mg/dL (8-24); CO2, Blood 23 mmol/L (21-32); Calcium, Blood 8.3 mg/dL (8.5-10.1); Chloride, Blood 105 mmol/L (98-108); Creatinine, Blood 2.83 mg/dL (0.60-1.20); Glomerular Filtration Rate 23 (60-); Glucose, Blood 96 mg/dL (70-99); Magnesium, Blood 2.1 mg/dL (1.6-2.4); Potassium, Blood 4.1 mmol/L (3.5-5.5); Sodium, Blood 138 mmol/L (136-145)
--- NOTE | 2019-09-05 07:26 | NUR ---
SUMMARY PT REQUIRED 2 DOSES OF ATIVAN THIS SHIFT.CALMED TO ACTUALLY ALLOW BLOOD DRAW AND RESTED.NO OTHER ACUTE CHANGES. CONTINUING BED ALARM FOR SAFETY.
--- NOTE | 2019-09-05 14:45 | NUR ---
IV ACCESS IV LEAKING, REMOVED. 3 PERIPHERAL IV ATTEMPTS, 2 FAILED POWERGLIDES. NEW ORDER FOR PICC LINE. AWAITING AVAILABLE PICC RN TO PLACE.
--- NOTE | 2019-09-05 19:12 | NUR ---
ATTEMPTED POWER GLIDE IN R UPPER ARM WITH NO SUCCESS X2. ATTEMPTED IV X4 WITH NO SUCCESS. PTS ARMS ARE VERY EDEMATOUS.
--- NOTE | 2019-09-05 19:26 | NUR ---
SHIFT SUMMARY PT WAS DROWSY AND CONFUSED BEGINNING OF SHIFT. WAS ABLE TO STAND x 2 WITH THERAPY THIS AFTERNOON. BUT BECAME AGITATED, HALLUCINATING, AND ITCHING THIS AFTERNOON. UNABLE TO GET IV ACCESS. DISCUSSED WITH PHOTOGRAPHER MOTION PICTURE SURGEON FOR CENTRAL LINE PLACEMENT. HE WISHES US TO CALL ER DOC FOR PLACEMENT IF AVAILABLE.
[2019-09-06 06:12] LABS: BASOPHILS ABSOLUTE AUTO 0.01 K/mm3 (0.00-0.23); BASOPHILS PERCENT AUTO 0 % (0-2); EOSINOPHILS PERCENT AUTO 0 % (0-6); Hematocrit 32.6 % (37.0-53.0); Hemoglobin 10.5 g/dL (13.5-17.5); IMMATURE GRAN ABSOLUTE AUTO 0.07 K/mm3 (0.00-0.10); IMMATURE GRAN PERCENT AUTO 1 % (0-1); LYMPHOCYTES ABSOLUTE AUTO 0.82 K/mm3 (0.84-5.20); LYMPHOCYTES PERCENT AUTO 6 % (21-46); MONOCYTES ABSOLUTE AUTO 0.91 K/mm3 (0.16-1.47); MONOCYTES PERCENT AUTO 6 % (4-13); Mean Corpuscular HGB 31.9 pg (26.0-34.0); Mean Corpuscular HGB Conc 32.2 g/dL (31.5-36.5); Mean Corpuscular Volume 99 fL (80-100); Mean Platelet Volume 11.8 fL (9.1-12.4); NEUTROPHILS ABSOLUTE AUTO 12.31 K/mm3 (1.96-9.15); NEUTROPHILS PERCENT AUTO 87 % (41-73); Platelet Count 93 K/mm3 (150-400); RDW Coefficient Variation 16.7 % (11.7-14.2); RDW Standard Deviation 61.5 fL (35.1-46.3); Red Blood Cell Count 3.29 M/mm3 (4.30-5.90); White Blood Cell Count 14.12 K/mm3 (4.00-11.30)
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
[2019-09-06 06:29] LABS: Magnesium, Blood 2.3 mg/dL (1.6-2.4)
[2019-09-06 06:30] LABS: Albumin, Blood 1.6 g/dL (3.4-5.0); Albumin/Globulin Ratio 0.5 (0.8-1.8); Bilirubin, Total 0.9 mg/dL (0.1-1.0); Bun/Creatinine Ratio 24.9 (12.0-20.0); Calcium, Blood 7.9 mg/dL (8.5-10.1); Creatinine, Blood 3.09 mg/dL (0.60-1.20); Globulin, Blood 3.5 g/dL (2.2-4.0); Potassium, Blood 3.6 mmol/L (3.5-5.5); Total Protein, Blood 5.1 g/dL (6.4-8.2)
--- NOTE | 2019-09-06 07:46 | NUR ---
NGT PLACED BY DR LEPE TO BE CHECKED BY XRAY PT PLACED IN SOFT WRIST RESTRAINTS TO PREVENT HIM FROM PULLING THEM OUT
--- NOTE | 2019-09-06 12:37 | NUR ---
dr diaz by to see pt picc line to be placed message left with diogenes
--- NOTE | 2019-09-06 12:40 | NUR ---
INITIAL [facility] CARE VISIT: Proxy for med decisions is Jamel hope [phone] Review of EMR done and case conferenced with pt's RN prior to visit. Reviewed, copied and placed pt's recently completed AD on his chart. Pt's current FULL CODE status orders are not in agreement with his advanced directive. He may have had a code status change for his surgical procedure but he is now past that procedure. Per his bedside RN, Pt's mentation is not clear enough to discuss advanced care planning or confirm wishes at this time. He has had worsening renal failure, possible etoh w/d and is very ill with evidence of GI patch leaking after procedure for perforated ulcer, compounding his declining mentation. Pt was admitted with NSTEMI and opted for medical management due to multiple comorbidities and prev stated goals of care. Pt has hx of renal CA and L nephrectomy, asthma, a flutter, CAD and alcholism. His advanced directive was completed in May of 2019, naming sonJamel as his first surrogate decision maker and his SO Dori Turcios as his second decision maker. Her number is [phone]. Pt requested no feeding tube and no life sustaining tx/measures under all four conditions listed in an advanced directive and is experiencing two of those four conditions at this time. Due to evidence of GI patch leakage an NG tube was placed for decompression/drainage. No NG feedings being provided. IV rx & fluids running with new powerglide inserted yesterday due to loss of IV site. ALL of above was discussed with hospitalist during our team mtng. When attempting visit this am pt was sleeping in darkened room. He did not wake to voice or gentle touch. I did not disturb him at that time. Plan to follow for support and advanced care planning with pt if able, son and SO.
--- NOTE | 2019-09-06 13:59 | NUR ---
PT PULLED OFF ABD BINDER WITH RESTRAINTS ON REPLACED UNABLE TO REACH NGT REAJUSTED PT AND ATIVAN GIVAN 0.5MG DOSE
--- NOTE | 2019-09-06 15:38 | NUR ---
PICC LINE PLACED DIETARY PLACED TPN ORDER PT ZAIN WELL
--- NOTE | 2019-09-06 18:42 | NUR ---
PT TRYING TO PULL OUT SARAH AND TRYING TO PULL AT HIS GOWN ATIVAN 0.5MG GIVEN
--- NOTE | 2019-09-06 23:25 | NUR ---
1930 PT RESTING COMFORTABLY IN BED; NG TUBE RIGHT NARE PATENT; WEARING ABD BINDER OVER ABD KELLY DRESSING; PT IS ALERT AND ORIENTED X 1; ABLE TO FOLLOW VERY SIMPLE VERBAL COMMANDS; BILATERAL WRIST RESTRAINTS MAINTAINED.
--- NOTE | 2019-09-07 04:37 | NUR ---
SHIFT SUMMARY: 79 Y/O MALE RESTED COMFORTABLY ALL SHIFT; PT ALERT AND ORIENTED X 2; PT CONTINUES TO REQUIRE BILATERAL WRIST RESTRAINTS DUE PT AT TIMES ATTEMPTING PULL OUT DRAINS/NGT AND IV; PT CURRENTLY NPO; PT HAD ONE EPISODE OF HEART RATE 130 WITH METOPROLOL 5MG IVP GIVEN WITH RESULTING HEART RATE DECREASING TO 105 PER FERNANDO--DRIVE WORKER; PTS ABD KELLY DRESSING DRY AND INTACT WITH ABD BINDER INTACT; YENIFER MARSHALL DRAINING THICK YELLOW MUCOUS; NGT HAS SCANT DRAINAGE NOTED; PT INCONTINENT AND REPOSITIONED BY STAFF EVERY 2 HOURS; TELEMETRY REFLECTS ATRIAL FLUTTER PER FERNANDO--DRIVE WORKER; PT C/O ABD PAIN WITH FACIAL VIEW SCORE 5--MORPHINE SULFATE 2MG IVP GIVEN WITH ADEQUATE PAIN RELIEF FELT; NPO; PT HAS PICC LINE SAGRARIO AND POWER GLIDE LEFT UPPER ARM--UNABLE DRAW BLOOD FROM THIS SITE; BED ALARM APPLIED, BED LOW POSITION WITH CALL LIGHT AT SIDE.
[2019-09-07 05:29] LABS: BASOPHILS ABSOLUTE AUTO 0.02 K/mm3 (0.00-0.23); BASOPHILS PERCENT AUTO 0 % (0-2); EOSINOPHILS ABSOLUTE AUTO 0.08 K/mm3 (0.00-0.68); EOSINOPHILS PERCENT AUTO 1 % (0-6); Hematocrit 30.2 % (37.0-53.0); IMMATURE GRAN ABSOLUTE AUTO 0.16 K/mm3 (0.00-0.10); IMMATURE GRAN PERCENT AUTO 1 % (0-1); LYMPHOCYTES ABSOLUTE AUTO 0.85 K/mm3 (0.84-5.20); LYMPHOCYTES PERCENT AUTO 6 % (21-46); MONOCYTES ABSOLUTE AUTO 0.96 K/mm3 (0.16-1.47); MONOCYTES PERCENT AUTO 7 % (4-13); Mean Corpuscular HGB 32.7 pg (26.0-34.0); Mean Corpuscular HGB Conc 33.1 g/dL (31.5-36.5); Mean Corpuscular Volume 99 fL (80-100); Mean Platelet Volume 12.5 fL (9.1-12.4); NEUTROPHILS ABSOLUTE AUTO 12.68 K/mm3 (1.96-9.15); NEUTROPHILS PERCENT AUTO 86 % (41-73); Platelet Count 98 K/mm3 (150-400); RDW Coefficient Variation 16.9 % (11.7-14.2); RDW Standard Deviation 61.8 fL (35.1-46.3); Red Blood Cell Count 3.06 M/mm3 (4.30-5.90); White Blood Cell Count 14.75 K/mm3 (4.00-11.30)
[2019-09-07 05:32] LABS: Albumin, Blood 1.4 g/dL (3.4-5.0); Anion Gap 7 mmol/L (6-16); Blood Urea Nitrogen 75 mg/dL (8-24); Bun/Creatinine Ratio 25.8 (12.0-20.0); CO2, Blood 24 mmol/L (21-32); Chloride, Blood 110 mmol/L (98-108); Creatinine, Blood 2.91 mg/dL (0.60-1.20); Glomerular Filtration Rate 22 (60-); Glucose, Blood 162 mg/dL (70-99); Magnesium, Blood 2.4 mg/dL (1.6-2.4); Phosphorus, Blood 3.5 mg/dL (2.5-4.9); Potassium, Blood 3.9 mmol/L (3.5-5.5); Sodium, Blood 141 mmol/L (136-145); Triglycerides 234 mg/dL (30-160)
--- NOTE | 2019-09-07 19:23 | NUR ---
SHIFT SUMMARY PT PLEASANT, CONFUSED, A&O1-2. POD4, NG TUBE 200 OUT, SARAH DRAINING SEROUS 30 MLS, PICC SAGRARIO INFUSING TPN, POWERGLIDE STAR SL/ABX. PAIN MANAGED WITH 2 MG MORPHINE. RESTRAINTS AT 0800 09/07. REPORT GIVEN TO ANDREZ FRANK.
--- NOTE | 2019-09-08 02:45 | NUR ---
The BP of 113/93 at 0225 was accidentally submitted. The correct BP was 124/47 at 0228 on 09/08/19.
[2019-09-08 04:33] LABS: BASOPHILS ABSOLUTE AUTO 0.02 K/mm3 (0.00-0.23); BASOPHILS PERCENT AUTO 0 % (0-2); EOSINOPHILS ABSOLUTE AUTO 0.29 K/mm3 (0.00-0.68); EOSINOPHILS PERCENT AUTO 2 % (0-6); Hematocrit 31.6 % (37.0-53.0); Hemoglobin 10.2 g/dL (13.5-17.5); IMMATURE GRAN ABSOLUTE AUTO 0.18 K/mm3 (0.00-0.10); IMMATURE GRAN PERCENT AUTO 1 % (0-1); LYMPHOCYTES ABSOLUTE AUTO 1.08 K/mm3 (0.84-5.20); LYMPHOCYTES PERCENT AUTO 7 % (21-46); MONOCYTES ABSOLUTE AUTO 1.13 K/mm3 (0.16-1.47); MONOCYTES PERCENT AUTO 7 % (4-13); Mean Corpuscular HGB 31.8 pg (26.0-34.0); Mean Corpuscular HGB Conc 32.3 g/dL (31.5-36.5); Mean Corpuscular Volume 98 fL (80-100); Mean Platelet Volume 11.7 fL (9.1-12.4); NEUTROPHILS ABSOLUTE AUTO 13.54 K/mm3 (1.96-9.15); NEUTROPHILS PERCENT AUTO 83 % (41-73); Platelet Count 143 K/mm3 (150-400); RDW Coefficient Variation 16.6 % (11.7-14.2); Red Blood Cell Count 3.21 M/mm3 (4.30-5.90); White Blood Cell Count 16.24 K/mm3 (4.00-11.30)
[2019-09-08 04:50] LABS: Albumin, Blood 1.5 g/dL (3.4-5.0); Albumin/Globulin Ratio 0.4 (0.8-1.8); Bilirubin, Total 0.8 mg/dL (0.1-1.0); Bun/Creatinine Ratio 29.2 (12.0-20.0); Calcium, Blood 8.4 mg/dL (8.5-10.1); Creatinine, Blood 2.74 mg/dL (0.60-1.20); Globulin, Blood 3.6 g/dL (2.2-4.0); Magnesium, Blood 2.6 mg/dL (1.6-2.4); Phosphorus, Blood 3.7 mg/dL (2.5-4.9); Potassium, Blood 3.8 mmol/L (3.5-5.5); Total Protein, Blood 5.1 g/dL (6.4-8.2)
--- NOTE | 2019-09-08 05:26 | NUR ---
SHIFT SUMMARY: MAX IS A&OX1. SOFT RESTRAINTS IN PLACE. ORAL CARE PROVIDED. NG TUBE IN PLACE. MEPILEX TO COCCYX. ATTENDS IN PLACE, INCONTINENT. NPO. VSS, NO ACUTE EVENTS OVERNIGHT. TELE IN PLACE. MEPILEX TO BILATERAL HEELS AND ELBOWS. PICC AND POWERGLIDE PATENT, TPN INFUSING. CALL LIGHT IN REACH. WILL REPORT TO DAY SHIFT RN.
--- NOTE | 2019-09-08 17:05 | NUR ---
SHIFT SUMMARY PT CONFUSED AND SLEEPY TODAY, WAKES AND ANSWERS QUESTIONS WITH ENCOURAGEMENT. NPO; NGT WITH GREEN LIQUID OUTPUT 100 MLS. SARAH WITH 5 MLS OUT. RESTRAINTS TO PREVENT LINES/CORDS PULLED OUT; 09/08 0800. PICC SAGRARIO INFUSING TPN @ 80 MLS/HR. POWERGLIDE STAR. TELE AFLUTTER @ 90S. INCONTINENT/ATTENDS ON. PAIN MANAGED WITH 2 MG MORPHINE. BIOX AT BEDSIDE. WILL REPORT TO ONCOMING BELINDA FRANK.
--- NOTE | 2019-09-08 17:30 | NUR ---
TELEPHONE CALL TO HOSPITALIST WITH RESULTS OF VBG 7.06 AND K 11.3, AFTER RECEIVING TELEPHONE CALL WITH THOSE RESULTS FROM RESPIRATORY.
[2019-09-08 17:35] LABS: Base Excess Venous -13.6 mmol/L; Bicarbonate Venous 13.9 mmol/L (24.0-30.0); PO2 Venous 67.4 mmHg (38-42); pH Blood Venous 7.06 (7.34-7.37)
[2019-09-08 18:39] LABS: PCO2 Arterial 36.7 mmHg (35-45); PO2 Arterial 80.4 mmHg (80-100)
[2019-09-08 19:19] LABS: Troponin I 0.029 ng/mL (0.000-0.040)
[2019-09-08 19:21] LABS: Albumin, Blood 1.4 g/dL (3.4-5.0); Anion Gap 3 mmol/L (6-16); Blood Urea Nitrogen 79 mg/dL (8-24); CO2, Blood 27 mmol/L (21-32); Calcium, Blood 8.1 mg/dL (8.5-10.1); Chloride, Blood 111 mmol/L (98-108); Creatinine, Blood 2.55 mg/dL (0.60-1.20); Glomerular Filtration Rate 26 (60-); Glucose, Blood 178 mg/dL (70-99); Phosphorus, Blood 3.3 mg/dL (2.5-4.9); Potassium, Blood 4.3 mmol/L (3.5-5.5); Sodium, Blood 141 mmol/L (136-145)
--- NOTE | 2019-09-08 19:33 | NUR ---
REPORT PROVIDED TO JUAN FRANK, PT TRANSFERRED TO ICU 13.
--- NOTE | 2019-09-08 20:04 | NUR ---
TELEPHONE CALL TO CORTES [phone] TO RELAY THAT PT HAS BEEN TRANSFERRED TO ICU 13. GAVE HER TELEPHONE NUMBER TO ICU.
[2019-09-08 20:34] LABS: BASOPHILS ABSOLUTE AUTO 0.03 K/mm3 (0.00-0.23); BASOPHILS PERCENT AUTO 0 % (0-2); EOSINOPHILS ABSOLUTE AUTO 0.03 K/mm3 (0.00-0.68); EOSINOPHILS PERCENT AUTO 0 % (0-6); Hematocrit 33.1 % (37.0-53.0); IMMATURE GRAN ABSOLUTE AUTO 0.32 K/mm3 (0.00-0.10); IMMATURE GRAN PERCENT AUTO 1 % (0-1); LYMPHOCYTES ABSOLUTE AUTO 0.83 K/mm3 (0.84-5.20); LYMPHOCYTES PERCENT AUTO 4 % (21-46); MONOCYTES ABSOLUTE AUTO 1.34 K/mm3 (0.16-1.47); MONOCYTES PERCENT AUTO 6 % (4-13); Mean Corpuscular HGB 32.2 pg (26.0-34.0); Mean Corpuscular HGB Conc 33.2 g/dL (31.5-36.5); Mean Corpuscular Volume 97 fL (80-100); Mean Platelet Volume 12.3 fL (9.1-12.4); NEUTROPHILS ABSOLUTE AUTO 20.28 K/mm3 (1.96-9.15); NEUTROPHILS PERCENT AUTO 89 % (41-73); Platelet Count 162 K/mm3 (150-400); RDW Coefficient Variation 16.5 % (11.7-14.2); RDW Standard Deviation 59.2 fL (35.1-46.3); Red Blood Cell Count 3.42 M/mm3 (4.30-5.90); White Blood Cell Count 22.83 K/mm3 (4.00-11.30)
[2019-09-09 04:20] LABS: BASOPHILS ABSOLUTE AUTO 0.04 K/mm3 (0.00-0.23); BASOPHILS PERCENT AUTO 0 % (0-2); EOSINOPHILS ABSOLUTE AUTO 0.13 K/mm3 (0.00-0.68); EOSINOPHILS PERCENT AUTO 1 % (0-6); Hematocrit 30.4 % (37.0-53.0); Hemoglobin 10.2 g/dL (13.5-17.5); IMMATURE GRAN ABSOLUTE AUTO 0.38 K/mm3 (0.00-0.10); IMMATURE GRAN PERCENT AUTO 2 % (0-1); LYMPHOCYTES ABSOLUTE AUTO 1.21 K/mm3 (0.84-5.20); LYMPHOCYTES PERCENT AUTO 6 % (21-46); MONOCYTES ABSOLUTE AUTO 1.64 K/mm3 (0.16-1.47); MONOCYTES PERCENT AUTO 8 % (4-13); Mean Corpuscular HGB 32.7 pg (26.0-34.0); Mean Corpuscular HGB Conc 33.6 g/dL (31.5-36.5); Mean Corpuscular Volume 97 fL (80-100); Mean Platelet Volume 11.9 fL (9.1-12.4); NEUTROPHILS ABSOLUTE AUTO 17.96 K/mm3 (1.96-9.15); NEUTROPHILS PERCENT AUTO 84 % (41-73); Platelet Count 160 K/mm3 (150-400); RDW Coefficient Variation 16.7 % (11.7-14.2); Red Blood Cell Count 3.12 M/mm3 (4.30-5.90); White Blood Cell Count 21.36 K/mm3 (4.00-11.30)
[2019-09-09 04:40] LABS: Albumin, Blood 1.3 g/dL (3.4-5.0); Albumin/Globulin Ratio 0.4 (0.8-1.8); Bilirubin, Total 1.2 mg/dL (0.1-1.0); Bun/Creatinine Ratio 31.6 (12.0-20.0); Calcium, Blood 8.1 mg/dL (8.5-10.1); Creatinine, Blood 2.47 mg/dL (0.60-1.20); Globulin, Blood 3.5 g/dL (2.2-4.0); Magnesium, Blood 2.5 mg/dL (1.6-2.4); Phosphorus, Blood 3.1 mg/dL (2.5-4.9); Potassium, Blood 4.1 mmol/L (3.5-5.5); Total Protein, Blood 4.8 g/dL (6.4-8.2)
--- NOTE | 2019-09-09 04:55 | NUR ---
SHIFT SUMMARY PATIENT HAS SLEPT WELL THRU NIGHT. C/O PAIN ONCE, RELIEVED WITH AVAILABLE MORPHINE. MENTATION HAS IMPROVED, OVERALL APPEARANCE BETTER AFTER A COUPLE HOURS OF FLUIDS INFUSING EARLIER IN SHIFT. RESTRAINTS MAINTAINED, HAS CONTINUED TO ATTEMPT TO REMOVE IT. ASSESSMENT IS CHARTED. VITAL SIGNS STABLE. WILL CONTINUE TO MONITOR.
--- NOTE | 2019-09-09 07:50 | NUR ---
ASSUMED CARE: REPORT RECEIVED FROM JUAN Roach RN. ASSUMED CARE OF THIS PT AT APPROX 0700. ON ASSESSMENT, THE PT IS RESTING QUIETLY. HE AWAKENS EASILY & IS ALERT TO SELF & FOLLOWING SOME DIRECTION. BILAT SOFT WRIST RESTRAINTS IN PLACE FOR CONTINUED ATTEMPTS TO REMOVE NGT & IV LINES BY PT. LS ARE DIM T/O, PT ON RA W/ O2 SATS > 92%. MONITOR SHOWS A FLUTTER W/ HR 80-110s. BP LABILE; SBP 70s ON ASSUMING CARE & QUICKLY INCREASED TO 170s. SEE VS DOCUMENTATION. PT IS NOT SYMPTOMATIC OF THIS BP FLUCTUATION. NGT REMAINS TO LIS, MIN AMNTS YELLOW OUTPUT. SARAH DRAIN TO RLQ W/ MOD AMNTS OF GREEN PURULENT DRAINAGE. SKIN OVERAL FRAGILE, WOUNDS DOCUMENTED. WILL CONTINUE TO MONITOR & UPDATE NEEDED.
--- NOTE | 2019-09-09 08:45 | NUR ---
DR NGUYEN: PROVIDER AT BEDSIDE TO EVAL PT. HE STS THAT LR MAY BE D/C'd. NO OTHER CHANGES & CONTINUE POC PER ROLL REPAIRER, DR CARLISLE. HE IS AGREEABLE THAT PT COULD BE TRANSFERRED BACK TO SURGICAL FLOOR STATUS IF DR CARLISLE AGREES.
--- NOTE | 2019-09-09 17:54 | NUR ---
SHIFT SUMMARY: NO ACUTE CHANGES SINCE PRIOR UPDATES. PT REMAINS A&O TO SELF, FAMILY & FOLLOWING SOME DIRECTIONS. HE IS FREQUENTLY FORGETFUL & NEEDING REORIENTATION. PT ON RA W/ O2 SATS > 92%. MONITOR SHOWS A FLUTTER W/ HR DECREASED SLIGHTLY TO 70-100s AFTER LOPRESSOR PER EMAR. MIDLINE KELLY DRESSING REMAINS CDI W/ WOUND VAC PATENT. SARAH CONTINUES W/ MOD AMNTS OF GREEN, PURULENT, MUCOID DRAINAGE. PT REMAINS INCONTINENT OF BLADDER & VOIDING IN LARGE AMNTS W/ ATTENDS IN PLACE. SKIN CONDITION OVERALL UNCHANGED, Q2H REPOSITIONING TO MAINTAIN SKIN INTEGRITY. PT IS NOW PCU STATUS. WILL CONTINUE TO MONITOR & REPORT OFF TO ONCOMING RN.
--- NOTE | 2019-09-09 20:00 | NUR ---
ASSUMPTION OF CARE: PT IS AWAKE IN BED. SPEECH IS GARBLED, CAN MAKE OUT SOME WORDS. PT IN AFLUTTER. SBP ELEVATED IN THE 190S. HAS LOPRESSOR Q6. HR IN THE 100S. LUNG SOUNDS CLEAR BUT DIM. SPO2 >90% ON RA. NGT TO LIS. PT HAS MIDLINE ABD DRESSING WITH KELLY. PT ALSO HAS A SARAH DRAIN TO RLQ THAT IS PUTTING OUT GREEN BILE. DRESSING IS C/D/I WITH SOME SANGIOUNESS DRAINAGE. PT HAS PICC AND PG. CPN IS INFUSING AT 75MLS/HR. BICARB INFUSING AT 50MLS/HR. WILL CONTINUE TO MONITOR.
--- NOTE | 2019-09-09 22:00 | NUR ---
SPOKE WITH DR MARTINEZ RE PTS ELEVATERD BP. NO ORDERS RECEIVED. DR MARTINEZ STATED HE WOULD LOOK AT THE CHART AND PRESSURES AND ENTER ORDERS.
[2019-09-10 03:43] LABS: Hemoglobin 9.3 g/dL (13.5-17.5)
[2019-09-10 04:01] LABS: Albumin, Blood 1.3 g/dL (3.4-5.0); Anion Gap 6 mmol/L (6-16); Blood Urea Nitrogen 75 mg/dL (8-24); CO2, Blood 29 mmol/L (21-32); Calcium, Blood 8.1 mg/dL (8.5-10.1); Chloride, Blood 110 mmol/L (98-108); Creatinine, Blood 2.27 mg/dL (0.60-1.20); Glomerular Filtration Rate 30 (60-); Glucose, Blood 191 mg/dL (70-99); Magnesium, Blood 2.3 mg/dL (1.6-2.4); Phosphorus, Blood 3.6 mg/dL (2.5-4.9); Potassium, Blood 4.4 mmol/L (3.5-5.5); Sodium, Blood 145 mmol/L (136-145)
--- NOTE | 2019-09-10 06:08 | NUR ---
PT BP ELEVATED. LABETOLOL GIVEN WITH LITTLE EFFECT. JUAN CALLED. ORDERS RECEIVED TO GIVE ONE DOSE HYDRALAZINE NOW.
--- NOTE | 2019-09-10 07:04 | NUR ---
SHIFT SUMMARY: PT AWAKE ON AND OFF T/O NIGHT. WAS ABLE TO FOLLOW COMMANDS AND ANSWER SOME QUESTIONS, HOWEVER SPEECH REMAINS SOMEWHAT GARBLED. PT HTN THIS AM DESPITE LABETOLOL AND HYDRALAZINE. ATIVAN X 1 GIVEN. PT REMAINS ON RA, SATS >90%. NGT TO LIS. SARAH DRAIN HAD SMALL AMT OF GREEN MUCOUS BILE OUT. MIDLINE ABD BANDAGE REMAINS INTACT WITH SMALL AMT OF SANGIOUNESS DRAINAGE THAT HAS REMAINED UNCHANGED T/O SHIFT. BICARB AT 50MLS. CPN AT 80MLS. PT DENIED PAIN T/O SHIFT. WILL PASS REPORT TO ONCOMING RN
[2019-09-10 11:43] LABS: Source, Urine Catheter
[2019-09-10 11:50] LABS: Bilirubin, Urine Neg (Neg); Blood, Urine 5+ (Neg); Glucose Qualitative, Urine Neg (Neg); Ketones, Urine Neg (Neg); Leukocyte Esterase, Urine 3+ (Neg); Nitrite, Urine Neg (Neg); Protein, Urine 2+ (Neg); Specific Gravity, Urine 1.015 (1.003-1.022); Urobilinogen, Urine NORM (Normal)
[2019-09-10 11:55] LABS: Appearance, Urine Hazy (Clear); Color, Urine Yellow (P-Yellow)
[2019-09-10 11:56] LABS: White Blood Cells, Urine 25-50 /hpf (0-5)
[2019-09-10 11:57] LABS: Amorphous Mod (0-Heavy); Bacteria Mod /hpf; Squamous Epithelial Cells Rare /hpf (Few)
--- NOTE | 2019-09-10 19:30 | NUR ---
INITAL SHIFT ASSESSMENT PT IS RESTING WITH EYES CLOSED UPON THIS RN ENTERING ROOM FOR BEDSIDE REPORT. HE WAKES EASILY TO VERBAL STIMULI. SPEECH IS CLEAR AT TIMES AND HE IS ABLE TO ANSWER SOME QUESTIONS. HOWEVER HE IS CONFUSED AT BASELINE. COOPERATIVE WITH TURNING AT THIS TIME AND ASSESSMENT OF ABD. HE IS FAIRLY PALE IN APPERANCE. HAS SOME MOTTLING TO THE TOP OF HIS THIGHS/KNEES. NG TUBE IN PLACE TO LOW INT SUCTION WITH BILE RETURN. PT HAS A ABD BINDER IN PLACE. PICCO VAC TO MIDLINE INCISION. OLD BLOOD NOTED ON DRESSING. SARAH DRAIN TO RIGHT QUADRANT DRAINING GREEN BILE WITH MODERATE OUTPUT. PT IS TENDER TO LIGHT PALPATION IN ALL 4 QUADRANTS. HYPO ACTIVE BOWEL TONES NOTED. SIERRA CATH IN PLACE DRAINING CLEAR YELLOW URINE. NO S/S OF INFECTION TO CATHETER. PAS STOCKINGS IN PLACE. PT HAS EDEMA TO ALL EXTREMITIES AND THEREFORE THEY ARE ELEVATED ON PILLOWS. HEEL AND ELBOW PROTECTIVE DRESSINGS IN PLACE. SOFT BILATERAL WRIST RESTRAITNS IN PLACE. PT DOES EXPRESS HIS STRONG DISLIKE FOR THE RESTRAITNS AND BECOMES VERY AGGITATED WITH HIS BP CUFF. STATES TO LEAVE HIM ALONE. PT HAS A MILD TEMP THEREFORE BLANKETS WERE REMOVED. WILL MONITOR AND TREAT NEEDED. WILL CON'T TO TURN PT T/O SHIFT AND KEEP COMFORTABLE. HE DENIES PAIN CURRENTLY.
--- NOTE | 2019-09-11 00:01 | NUR ---
SHIFT UPDATE PT CON'T TO BE STABLE. HE WAS GIVEN IV PAIN MEDS FOR INCREASED S/S OF PAIN. HE TOLERATED HIS TURN AND REPOSITIONING BETTER WITH LESS AGGITATION. HE WAS ABLE TO HELP WITH THIS TURN. VITALS REMAIN STABLE. NO CHANGES WITH NG OR SARAH DRAINAGE. TEMP DECREASED TO WNL WITH REMOVAL OF BLANKET. LUCINA WRIST RESTRAINTS CON'T TO BE IN PLACE. NO SKIN ISSUES. WILL CON'T TO MONITOR AND KEEP PT SAFE.
[2019-09-11 03:37] LABS: Hematocrit 27.1 % (37.0-53.0)
[2019-09-11 03:50] LABS: Albumin, Blood 1.3 g/dL (3.4-5.0); Anion Gap 6 mmol/L (6-16); Blood Urea Nitrogen 77 mg/dL (8-24); Bun/Creatinine Ratio 34.8 (12.0-20.0); CO2, Blood 32 mmol/L (21-32); Chloride, Blood 108 mmol/L (98-108); Creatinine, Blood 2.21 mg/dL (0.60-1.20); Glomerular Filtration Rate 31 (60-); Glucose, Blood 147 mg/dL (70-99); Magnesium, Blood 2.4 mg/dL (1.6-2.4); Phosphorus, Blood 4.4 mg/dL (2.5-4.9); Potassium, Blood 4.8 mmol/L (3.5-5.5); Sodium, Blood 146 mmol/L (136-145)
--- NOTE | 2019-09-11 05:14 | NUR ---
SHIFT SUMMARY PT CON'T TO BE STABLE WITH NO CHANGES FROM BASELINE. HE HAS BEEN PLESANT AND COOPERTIVE T/O SHIFT. HE IS HELPING TO RE-POSITION T/O MORNING SHIFT. NO CHANGE TO ABD STATUS. SARAH DRAIN HAS HAD MINIMAL OUTPUT. NG ALSO HAS HAD VERY MINIMAL OUTPUT AND PT HAS DENIED FEELING NAUSEATED T/O SHIFT. CON'T TO BE GREEN LIQUID. SIERRA CATH CON'T TO BE PATENT DRAINING YELLOW URINE. PT HAS LUCINA WRIST RESTRAINTS IN PLACE. NO CHANGES TO SKIN CONDITION. PT CON'T TO HAVE TPN RUNNING INTO RIGHT UPPER ARM PICC LINE. WILL CON'T TO MONITOR AND KEEP PT SAFE TILL REPORT TO ONCOMING RN. PT IS NOT USING CALL LIGHT BUT IT IS WITHIN REACH.
--- NOTE | 2019-09-11 07:58 | NUR ---
PT MORE ALERT AND COMMUNICATING TOAY. ARMOND ABD. PAIN BUT TENDER TO PALPATION. SARAH PURULANT BILE COLOR. INCISION D/I. CPN AT 80 ML VIA PICC LINE. WILL CONT TO RESTRAIN PT FOR NOW UNTIL ABLE TO CONFIRM MENTAL STATUS FOR PT SAFETY. VSS. RYTHUM LOOKS SINUS WIH 1ST DEGREE AV. RIGO PATENT. PAS ON.
--- NOTE | 2019-09-11 10:43 | NUR ---
TO CT PER BED WTIH STEFFANIE.
--- NOTE | 2019-09-11 12:49 | NUR ---
Attempted to see pt this am. He was on his way to CT for f/u CT per PN. Pt may be transferred out of ICU today per ICU staff. Will follow.
--- NOTE | 2019-09-11 17:07 | NUR ---
DR NGUYEN IN TO CHECK ON PT AND ASSESS STATUS. PT HAS REMAINED MORE VERBAL TODAY, HOWEVER THERE HAS BEEN SOME UNDERLYING CONFUSION REMAINING. HAS BEEN ABLE TO MAKE WISHES KNOW BETTER TODAY AND MORE VERBAL RE PAIN AND RESP STATUS. VSS. I/O NOTED. SARAH DRAINAGE NOTED AND UNCHANGED THIS SHIFT WITH DR LEPE IN EARLIER. PT HAS REMAINED IN SINUS WITH 1ST DEGREE AV BLOCK THIS SHIFT.
--- NOTE | 2019-09-11 20:00 | NUR ---
ASSUMED CARE: PT WITH SOME CONFUSION BUT ABLE TO VERBALIZE MORE. IN AFIB WITH 1DEGREE HB. ON RA. LUNG SOUDNS ARE CELAR. PT IS STRICT NPO AND NGT NEEDS TO BE PROTECTED D/T PT ATTEMPTING TO PULL ON IT. ABD DRESSING D/I. SMALL AMT OF SANGIOUNESS FLUID ON DRESSING. HOWEVER IT IS OLD AND UNCHANGED. SARAH DRAIN PRODUCING GREEN MUCOUCY BILE. PICC TO SAGRARIO AND PG STAR. CPN INFUSING AT 80MLS/HR. SIERRA IN PLACE. WILL CONTINUE TO MONITOR
[2019-09-12 04:08] LABS: Hemoglobin 8.6 g/dL (13.5-17.5)
[2019-09-12 04:27] LABS: Albumin, Blood 1.5 g/dL (3.4-5.0); Anion Gap 5 mmol/L (6-16); Blood Urea Nitrogen 65 mg/dL (8-24); Bun/Creatinine Ratio 31.1 (12.0-20.0); CO2, Blood 32 mmol/L (21-32); Chloride, Blood 110 mmol/L (98-108); Creatinine, Blood 2.09 mg/dL (0.60-1.20); Glomerular Filtration Rate 33 (60-); Glucose, Blood 149 mg/dL (70-99); Magnesium, Blood 2.6 mg/dL (1.6-2.4); Phosphorus, Blood 4.4 mg/dL (2.5-4.9); Potassium, Blood 4.6 mmol/L (3.5-5.5); Sodium, Blood 147 mmol/L (136-145)
--- NOTE | 2019-09-12 07:06 | NUR ---
SHIFT SUMMARY: NO ACUTE CHANGES T/O SHIFT. PT ABLE TO FOLLOW MORE COMMANDS. DID NOT SLEEP WELL T/O SHIFT. REQUESTED 1 NEB TX AND REQ PAIN MEDS PER MAY X 2. WILL PASS REPORT TO ONCOMING SHIFT
--- NOTE | 2019-09-12 07:27 | NUR ---
Received report from Jamaal FRANK. patient lying supine in bed with HOB at 20 derees. He is awake and speech garbled and difficult to understand. He is on 2L O2 via VC at 100%sats and turned to RA and remains at 98% sats. He denies any pain or need for intervention. He has 20ga PowerGlide in STAR dressing intact and site WNL's flushed and SL'd. He also has PICC line in SAGRARIO dressing intact and site WNL's and is infusing CPN at 80ml/hr. He has SCD's bilaterlly to LE's. He has lower Abd. midline surgical site with gauze and clear op site dressing with quarter size blood spot that has not got bigger. There is a enedelia drain and SARAH draing to right of site. He has abdominal binder in place. He has OG to LIS with yellow and brown output
--- NOTE | 2019-09-12 09:50 | NUR ---
Patient continues ot rest and is cooperative with care. Medicated for abdominal pain 08/[address] Conn by and states ok to transfer to surgical floor. Abdominal site C/D/I. CPN and abx continue.
--- NOTE | 2019-09-12 11:30 | NUR ---
Patient has been resting well and moving extremities in bed while awake. PT by and worked with patient and stated he did well. VSS, See EMR. He remains on RA and sats in the mid to upper 90's. Abdomen site C/D/I and drains small amounts. He will be transferring to Surgical floor. SCD's in place. Vaz draing to gravity.
--- NOTE | 2019-09-12 12:16 | NUR ---
Pal Care Visit: Pt in ICU 13, lying flat in bed. He is awake and conversant, pleasant in exchange of greetings. He reports that he does not have any pain or nausea. EMR reviewed. Pt is surgical floor status now and may be transferred out of ICU. Pt remains NPO with TPN for nutrition. Pal Care will cont to follow from a distance.
--- NOTE | 2019-09-12 13:30 | NUR ---
TRANSFER TO SURG FLOOR PT ARRIVES AND TRANSFERRED TO BED BY SLIDER SHEET AND 4 PERSON ASSIST. ORIENTED TO SELF, PLACE, EVENT, AND SURROUNDINGS. NGT HOOKED TO LIS. GREEN BILE RETURN. ALSO GREEN BILE NOTED TO SARAH. MIDLINE KELLY WNL. DENIES PAIN.
--- NOTE | 2019-09-12 17:00 | NUR ---
NGT PT FOUND TO HAVE PULLED OUT NGT; UNWITNESSED.
--- NOTE | 2019-09-12 18:20 | NUR ---
NGT PLACED. WITH SOME DIFFICULTY. AWAITING IMAGING RESULT BEFORE APPLYING LIS.
[2019-09-13 04:15] LABS: BASOPHILS ABSOLUTE AUTO 0.07 K/mm3 (0.00-0.23); BASOPHILS PERCENT AUTO 1 % (0-2); EOSINOPHILS ABSOLUTE AUTO 0.17 K/mm3 (0.00-0.68); EOSINOPHILS PERCENT AUTO 1 % (0-6); Hemoglobin 8.7 g/dL (13.5-17.5); IMMATURE GRAN ABSOLUTE AUTO 0.19 K/mm3 (0.00-0.10); IMMATURE GRAN PERCENT AUTO 1 % (0-1); LYMPHOCYTES ABSOLUTE AUTO 0.91 K/mm3 (0.84-5.20); LYMPHOCYTES PERCENT AUTO 7 % (21-46); MONOCYTES ABSOLUTE AUTO 1.22 K/mm3 (0.16-1.47); MONOCYTES PERCENT AUTO 9 % (4-13); Mean Corpuscular HGB Conc 32.2 g/dL (31.5-36.5); Mean Corpuscular Volume 99 fL (80-100); Mean Platelet Volume 12.1 fL (9.1-12.4); NEUTROPHILS ABSOLUTE AUTO 11.39 K/mm3 (1.96-9.15); NEUTROPHILS PERCENT AUTO 82 % (41-73); Platelet Count 236 K/mm3 (150-400); RDW Coefficient Variation 16.4 % (11.7-14.2); Red Blood Cell Count 2.72 M/mm3 (4.30-5.90); White Blood Cell Count 13.95 K/mm3 (4.00-11.30)
--- NOTE | 2019-09-13 04:19 | NUR ---
SHIFT SUMMARY PERFED ULCER WITH GRAM PATCH REPAIR ON 09/02 PT AA0X1, ABLE TO FOLLOW DIRECTIONS, PLEASANT AND COOPERATIVE. CAN MAKE NEEDS KNOWN. NG TUBE REMAINED IN PATENT AND DRAINING GREENISH/YELLOW OUTPUT. SARAH DRAIN STILL WITH GREEN OUTPUT. SIERRA PATENT AND DRAINING. PT DID NOT ATTEMPT TO GET OUT OF RESTRAINTS, WOULD REACH FOR CORDS WHEN PERFORMING ROM WITH HIM BUT UNDERSTOOD THE NEED TO KEEP THEM ON. CPN AND IV FLUIDS INFUSING PER EMAR. MEDICATED FOR PAIN X1. PT REPOSITIONING SELF IN BED WITH ASSISTANCE. BED ALARM ON DURING SHIFT.
--- NOTE | 2019-09-13 18:09 | NUR ---
SUMMARY PTORIENTED TO PERSON , COOPERATIVE AND ASSISTS STAFF WITH TURNING IN BED.REQUESTS URINAL AT TIMES BUT HAS BEEN INCONTINENT OF URINE. BILATERAL SOFT WRIST RESTRAINTS IN PLACE PT ATTEMPTS TO PULL ON IV LINES AND AT NG. PTS SON AND SIGNIFICANT OTHER HERE TO VISIT. PT WITH MEPILEX IN PLACE TO BILATERAL HEELS AND ELBOWS AND TO COCCYX.
--- NOTE | 2019-09-14 01:50 | NUR ---
YAZ OLMOS NOTED WELTS DEVELOPING OVER PT'S BODY. HE STATED THAT HE FELT LIKE HE WAS HAVING AN ASTHMA ATTACK. NURSING TO BEDSIDE TO WITNESS REPORTED SPLOTCHES. NOTED TIGHTLY SPACED IRREGULAR BOARDERED RAISED SPLOTCHES. WHEN ASKED IF THEY WERE ITCHY, PT STATED THAT THEY DID ITCH. WHEN ASKED IF PT STILL FELT LIKE HE WAS HAVING AN ASTHMA ATTACK, HE STATED THAT HE DID. PRN TREATMENT GIVEN PER RT. DR. SMITH CONTACTED AND INFORMED OF FINDINGS. BENADRYL 50MG AND PEPCID 20MG GIVEN IVP. AM DOSE OF ZOSYN HELD. PT VOICES THAT HE FEELS BETTER AT THIS TIME. SAFETY MEASURES IN PLACE. HAND OFF GIVEN TO Darryl RIOS RN USING SBAR.
--- NOTE | 2019-09-14 04:07 | NUR ---
SHIFT SUMMARY NO ACUTE CHANGES SINCE RECEIVING REPORT FROM PREVIOUS NURSE. PT REMAINS IN RESTRAINTS. ROM AND REPOSITIONING PERFORMED FREQUENTLY. PT TOLERATING WELL, HAS BEEN SLEEPING MOST OF SHIFT. DENIED PAIN WHEN ASKED. SARAH DRAIN BULB COMPRESSED NO OUTPUT SINCE I ASSUMED CARE. PT INC OF VOID. HIVES SEEN ON PT APPEAR TO BE GOING DOWN. PT REPORTS DECREASE IN ITCHING. STATES TOLERABLE NOW. WILL CONTINUE TO MONITOR FOR ADVERSE EFFECTS FROM REACTION.
[2019-09-14 04:12] LABS: BASOPHILS ABSOLUTE AUTO 0.06 K/mm3 (0.00-0.23); BASOPHILS PERCENT AUTO 1 % (0-2); EOSINOPHILS PERCENT AUTO 1 % (0-6); Hematocrit 26.3 % (37.0-53.0); Hemoglobin 8.7 g/dL (13.5-17.5); IMMATURE GRAN ABSOLUTE AUTO 0.13 K/mm3 (0.00-0.10); IMMATURE GRAN PERCENT AUTO 1 % (0-1); LYMPHOCYTES ABSOLUTE AUTO 0.96 K/mm3 (0.84-5.20); LYMPHOCYTES PERCENT AUTO 7 % (21-46); MONOCYTES ABSOLUTE AUTO 0.95 K/mm3 (0.16-1.47); MONOCYTES PERCENT AUTO 7 % (4-13); Mean Corpuscular HGB 32.6 pg (26.0-34.0); Mean Corpuscular HGB Conc 33.1 g/dL (31.5-36.5); Mean Corpuscular Volume 99 fL (80-100); Mean Platelet Volume 12.4 fL (9.1-12.4); NEUTROPHILS ABSOLUTE AUTO 10.76 K/mm3 (1.96-9.15); NEUTROPHILS PERCENT AUTO 83 % (41-73); Platelet Count 254 K/mm3 (150-400); RDW Coefficient Variation 16.2 % (11.7-14.2); RDW Standard Deviation 59.4 fL (35.1-46.3); Red Blood Cell Count 2.67 M/mm3 (4.30-5.90); White Blood Cell Count 12.96 K/mm3 (4.00-11.30)
[2019-09-14 04:27] LABS: Albumin, Blood 1.5 g/dL (3.4-5.0); Anion Gap 5 mmol/L (6-16); Blood Urea Nitrogen 64 mg/dL (8-24); Bun/Creatinine Ratio 34.6 (12.0-20.0); CO2, Blood 30 mmol/L (21-32); Calcium, Blood 8.2 mg/dL (8.5-10.1); Chloride, Blood 112 mmol/L (98-108); Creatinine, Blood 1.85 mg/dL (0.60-1.20); Glomerular Filtration Rate 38 (60-); Glucose, Blood 147 mg/dL (70-99); Magnesium, Blood 2.6 mg/dL (1.6-2.4); Potassium, Blood 4.2 mmol/L (3.5-5.5); Sodium, Blood 147 mmol/L (136-145); Triglycerides 94 mg/dL (30-160)
--- NOTE | 2019-09-14 07:05 | NUR ---
recvd report from previous shift rn kirill, pt awake in bed watching TV, soft restraints in place, removed to assess/reposition. pt agreeable to repositioning, non-violent, is unable to answer person/place/time questions. bed in lowest position, bed rails up x 2.
--- NOTE | 2019-09-14 18:02 | NUR ---
shift summary: vss, no acute changes. Pt worked with physical therapy today, up in the chair with restraints for 1.5 hrs, then back to bed. Pt remained NPO t/o shift, offered mouth moisteners. pt remained oriented to self, follows orders, remains impulsive, pulling on tubes/attends, etc. BM x 1 today, multiple incontinent voids plus collected urine of 100 ml. Pt received breathing treatments x 2, family visited this shift.
[2019-09-15 04:31] LABS: BASOPHILS ABSOLUTE AUTO 0.13 K/mm3 (0.00-0.23); BASOPHILS PERCENT AUTO 1 % (0-2); EOSINOPHILS ABSOLUTE AUTO 0.17 K/mm3 (0.00-0.68); EOSINOPHILS PERCENT AUTO 2 % (0-6); Hemoglobin 9.1 g/dL (13.5-17.5); IMMATURE GRAN ABSOLUTE AUTO 0.07 K/mm3 (0.00-0.10); IMMATURE GRAN PERCENT AUTO 1 % (0-1); LYMPHOCYTES ABSOLUTE AUTO 0.95 K/mm3 (0.84-5.20); LYMPHOCYTES PERCENT AUTO 8 % (21-46); MONOCYTES ABSOLUTE AUTO 0.89 K/mm3 (0.16-1.47); MONOCYTES PERCENT AUTO 8 % (4-13); Mean Corpuscular HGB 32.4 pg (26.0-34.0); Mean Corpuscular HGB Conc 32.5 g/dL (31.5-36.5); Mean Corpuscular Volume 100 fL (80-100); Mean Platelet Volume 12.7 fL (9.1-12.4); NEUTROPHILS PERCENT AUTO 81 % (41-73); Platelet Count 267 K/mm3 (150-400); RDW Coefficient Variation 16.1 % (11.7-14.2); Red Blood Cell Count 2.81 M/mm3 (4.30-5.90); White Blood Cell Count 11.71 K/mm3 (4.00-11.30)
[2019-09-15 04:49] LABS: Albumin, Blood 1.6 g/dL (3.4-5.0); Anion Gap 5 mmol/L (6-16); Blood Urea Nitrogen 62 mg/dL (8-24); Bun/Creatinine Ratio 35.6 (12.0-20.0); CO2, Blood 28 mmol/L (21-32); Calcium, Blood 8.3 mg/dL (8.5-10.1); Chloride, Blood 113 mmol/L (98-108); Creatinine, Blood 1.74 mg/dL (0.60-1.20); Glomerular Filtration Rate 41 (60-); Glucose, Blood 138 mg/dL (70-99); Magnesium, Blood 2.6 mg/dL (1.6-2.4); Phosphorus, Blood 4.1 mg/dL (2.5-4.9); Potassium, Blood 4.2 mmol/L (3.5-5.5); Sodium, Blood 146 mmol/L (136-145); Triglycerides 108 mg/dL (30-160)
--- NOTE | 2019-09-15 05:00 | NUR ---
SHIFT SUMMARY AA0X1. COOPERATIVE AND PLEASANT T/O SHIFT. PT INC OF VOID WITH OCCASIONALLY ASKING FOR URINAL. PT C/O PAIN X1 DURING SHIFT, MEDICATED PER EMAR. PT ATTEMPTED TO PULL SARAH DRAIN OUT ONCE DURING SHIFT DURING ROM. ONLY THE DRESSING WAS PULLED, REDRESSED THE SITE. PT HAS BEEN RESTING IN BED DURING SHIFT. NG TUBE PATENT AND DRAINING. BROWNISH/GREEN IN COLOR. CPN INFUSING PER EMAR.
--- NOTE | 2019-09-15 07:00 | NUR ---
recvd report from previous RN Zachery, pt sleeping in bed with restraints in place, will assess
--- NOTE | 2019-09-15 08:46 | NUR ---
dr diaz rounding on pt
--- NOTE | 2019-09-15 09:45 | NUR ---
pt's family here to visit pt, asks for update to pt's condition. this rn spent approx 20 minutes with family educating (see education intervention).
--- NOTE | 2019-09-15 14:35 | NUR ---
mague pt with assistance to call SO
--- NOTE | 2019-09-15 14:40 | NUR ---
Dr Grimes rounded on pt
--- NOTE | 2019-09-15 14:58 | NUR ---
PT in with patient
--- NOTE | 2019-09-15 15:40 | NUR ---
pt sitting up in chair following PT treatment, soft restraints in place. pt awake, a/0 x 2-3, confused as to what exactly has happened to him but asking questions, somewhat jumbled and not entirely coherent, drastically improved from previous. appears to be anxious r/t care, financial situation with treatment, but at times states he's concerned about financial issues with home. This RN called pt's son to have a conversation, hopefully to ease pt's concerns.
--- NOTE | 2019-09-15 17:20 | NUR ---
shift summary: vss, no acute changes, pt remains confused t/o shift, somnolent until approx 1400 when working with PT/OT, awakens only when toileting/assessing/repositioning. pt sat up in chair for approx 1 hr this shift. Pt anxious about hospital care/medical decisions, financial concerns. during this conversation stream of consciousness difficult to follow. (See note) NG tube draining green liquid, SARAH draining scant milky nolan/green liquid. Sent specimen for culture per orders.
[2019-09-16 04:41] LABS: Hematocrit 26.9 % (37.0-53.0); Hemoglobin 8.8 g/dL (13.5-17.5)
[2019-09-16 05:03] LABS: Albumin, Blood 1.7 g/dL (3.4-5.0); Anion Gap 5 mmol/L (6-16); Blood Urea Nitrogen 54 mg/dL (8-24); Bun/Creatinine Ratio 35.3 (12.0-20.0); CO2, Blood 27 mmol/L (21-32); Calcium, Blood 8.4 mg/dL (8.5-10.1); Chloride, Blood 111 mmol/L (98-108); Creatinine, Blood 1.53 mg/dL (0.60-1.20); Glomerular Filtration Rate 47 (60-); Glucose, Blood 129 mg/dL (70-99); Magnesium, Blood 2.2 mg/dL (1.6-2.4); Phosphorus, Blood 4.3 mg/dL (2.5-4.9); Sodium, Blood 143 mmol/L (136-145)
--- NOTE | 2019-09-16 06:51 | NUR ---
ASSUMED CARE OF PATIENT AT 1915. PATIENT ALERT AND ORIENTED TO SELF, HAS AN INCOHERENT THOUGHT PROCESS. NG TUBE TO LOW INTERMITTENT SUCTION. NO OUTPUT NOTED. MINIMAL OUTPUT OF 10ML NOTED IN SARAH DRAIN. RESTRAINTS WERE CONTINUED. PATIENT WITH FREQUENT EPISODES OF INCONTINENCE OF URINE. VSS, BED LOWERED TO LOWEST POSITION. CALL LIGHT WITHIN REACH. WILL CONTINUE TO MONITOR.
--- NOTE | 2019-09-16 16:29 | NUR ---
SHIFT SUMMARY PT NPO. PT CONT TO BE CONFUSED. PT CONT TO BE IN RESTRAINTS. PT BED ALARM IN PLACE. PT WAS UP TO CHAIR EARLIER WITH TAB ALARM IN PLACE WELL RESTRAINTS. PT BEEN REPOSITIONED MULT TIMES TODAY WITH ASSIST FROM HYDRAULIC DREDGE OPERATOR. PT BEEN ASSISTED WITH ADL'S PRN.
--- NOTE | 2019-09-16 19:18 | NUR ---
REPORT GIVEN BED ALARM IN PLACE. PT SLEEPING.
[2019-09-17 04:23] LABS: Hematocrit 25.8 % (37.0-53.0)
--- NOTE | 2019-09-17 04:28 | NUR ---
SHIFT SUMMARY: 79 Y/O MALE RESTED COMFORTABLY ALL SHIFT; PT CONTINUES TO BE ALERT AND ORIENTED X 1 AND REQUIRES FREQUENT REDIRECTION BY NURSING STAFF; PT STILL IN BILATERAL SOFT WRIST RESTRAINTS PT WILL ATTEMPT PULL OUT NGT AND IVs; PT REPOSITIONED Q2H BY STAFF; TPN AT 80ML/HR VIA RIGHT UPPER ARM PICC LINE (BLOOD DRAW PERFORMED FOR LAB THIS AM); PTS BILATERAL ELBOWS AND COCCYX ARE COVERED WITH MEPLEX DRESSING; NGT HAS LIQUID BROWN FLUID NOTED; SARAH HAD SCANT DRAINAGE; BED ALARM APPLIED, BED LOW POSITION WITH CALL LIGHT AT SIDE.
[2019-09-17 04:39] LABS: Albumin, Blood 1.6 g/dL (3.4-5.0); Anion Gap 5 mmol/L (6-16); Blood Urea Nitrogen 50 mg/dL (8-24); Bun/Creatinine Ratio 33.8 (12.0-20.0); CO2, Blood 27 mmol/L (21-32); Calcium, Blood 8.2 mg/dL (8.5-10.1); Chloride, Blood 111 mmol/L (98-108); Creatinine, Blood 1.48 mg/dL (0.60-1.20); Glomerular Filtration Rate 49 (60-); Glucose, Blood 131 mg/dL (70-99); Magnesium, Blood 1.9 mg/dL (1.6-2.4); Phosphorus, Blood 3.6 mg/dL (2.5-4.9); Potassium, Blood 3.9 mmol/L (3.5-5.5); Sodium, Blood 143 mmol/L (136-145)
--- NOTE | 2019-09-17 10:00 | NUR ---
PT'S SON IN TO SEE PT EARLIER THIS AM. PT BEEN SLEEPING. SON REQ THAT PT'S DAUGHTER ALSO BE ALLOWED TO COME IN TODAY SO THAT BOTH OF THEM MAY TALK TO . NURSING ENROLLMENT ADVISOR REPORTS TO ALLOW BOTH TO COME IN AND TALK WITH DR. SON HAS LEFT FOR NOW. WHEN BOTH ARE PRESENT, THIS RN TO NOTIFY
--- NOTE | 2019-09-17 10:07 | NUR ---
PT'S DAUGHTER AND SON HERE, DR REA NOTIFIED.
--- NOTE | 2019-09-17 10:45 | NUR ---
DR REA HERE TO SEE PT, FAMILY IN ROOM.
--- NOTE | 2019-09-17 13:20 | NUR ---
DR FOY TO SEE PT, DISCUSSED PT'S STATUS.
[2019-09-17 14:01] LABS: BASOPHILS PERCENT AUTO 1 % (0-2); EOSINOPHILS ABSOLUTE AUTO 0.08 K/mm3 (0.00-0.68); EOSINOPHILS PERCENT AUTO 1 % (0-6); Hematocrit 24.7 % (37.0-53.0); Hemoglobin 7.9 g/dL (13.5-17.5); IMMATURE GRAN PERCENT AUTO 1 % (0-1); LYMPHOCYTES ABSOLUTE AUTO 0.98 K/mm3 (0.84-5.20); LYMPHOCYTES PERCENT AUTO 9 % (21-46); MONOCYTES ABSOLUTE AUTO 1.32 K/mm3 (0.16-1.47); MONOCYTES PERCENT AUTO 12 % (4-13); Mean Corpuscular HGB 32.5 pg (26.0-34.0); Mean Corpuscular Volume 102 fL (80-100); Mean Platelet Volume 12.1 fL (9.1-12.4); NEUTROPHILS ABSOLUTE AUTO 8.79 K/mm3 (1.96-9.15); NEUTROPHILS PERCENT AUTO 77 % (41-73); Platelet Count 296 K/mm3 (150-400); RDW Coefficient Variation 15.3 % (11.7-14.2); RDW Standard Deviation 57.3 fL (35.1-46.3); Red Blood Cell Count 2.43 M/mm3 (4.30-5.90); White Blood Cell Count 11.37 K/mm3 (4.00-11.30)
--- NOTE | 2019-09-17 16:55 | NUR ---
SHIFT SUMMARY PT NPO. PT CONT TO BE CONFUSED AND IN RESTRAINTS. FAMILY HERE EARLIER AND TALKED WITH . PT CONT TO BE ON TPN. PT BEEN ASSISTED WITH ADL'S PRN, OFFERED MOUTH CARE...PT CONT TO REFUSE, PT REPOSITIONED MULT TIMES, HAS HAD HEELS FLOATED THROUGHTOUT DAY ON PILLOW. PHOTO TAKEN TODAY OF SMALL SORE IN BETWEEN BUTTCHEEKS (ON BOTH SIDES OF BUTTCHEEK, VERY SMALL). NEW MEPILEX PLACED. PT CONT TO HAVE 2 MEPILEX TO BOTTOM. PT CONT TO HAVE MEPILEX TO R FOOT, HEEL PROTECTOR DRESSINGS AND MEPILEX DRESSINGS TO ELBOWS. PT BED ALARM IN PLACE, KENDRICK ROUNDING.
[2019-09-18 04:16] LABS: Hematocrit 24.5 % (37.0-53.0); Hemoglobin 7.7 g/dL (13.5-17.5)
[2019-09-18 04:33] LABS: Albumin, Blood 1.6 g/dL (3.4-5.0); Anion Gap 5 mmol/L (6-16); Blood Urea Nitrogen 50 mg/dL (8-24); Bun/Creatinine Ratio 34.7 (12.0-20.0); CO2, Blood 27 mmol/L (21-32); Calcium, Blood 8.3 mg/dL (8.5-10.1); Chloride, Blood 111 mmol/L (98-108); Creatinine, Blood 1.44 mg/dL (0.60-1.20); Glomerular Filtration Rate 50 (60-); Glucose, Blood 143 mg/dL (70-99); Phosphorus, Blood 3.6 mg/dL (2.5-4.9); Sodium, Blood 143 mmol/L (136-145)
--- NOTE | 2019-09-18 05:10 | NUR ---
SHIFT SUMMARY PATIENT HAS BEEN TURNED Q2 HOURS, AND ATTENDS CHANGED APPROXIMATELY EVERY 2-3 HOURS. PATIENT CONTINUES TO BE IN SOFT WRIST RESTRAINTS TO PROTECT THE NG TUBE. NG TUBE WITH BROWNISH/GREEN FLUID WITH LIS, 250CC OUT THIS SHIFT. ABD WITH JIMMIE ON THE INCISION LINE. NO ACUTE CHANGES. CALL LIGHT IN REACH.
--- NOTE | 2019-09-18 12:30 | NUR ---
ASSUMED CARE OF PT
--- NOTE | 2019-09-19 06:10 | NUR ---
SHIFT SUMMARY PT DENIED PAIN DURING SHIFT. REPORTED NO NAUSEA. INC OF VOID, PT ABLE TO HELP WITH REPOSITIONS AND ACTIVE WITH ROM DURING CHECKS. NG TUBE DARK GREEN/BROWN IN COLOR. NO OUTPUT IN SARAH DRAIN. PT AA0X1 DURING SHIFT. PLEASANT AND COOPERATIVE. NO BM DURING SHIFT.
[2019-09-19 06:50] LABS: Hematocrit 26.8 % (37.0-53.0); Hemoglobin 8.4 g/dL (13.5-17.5)
[2019-09-19 07:06] LABS: Albumin, Blood 1.6 g/dL (3.4-5.0); Anion Gap 5 mmol/L (6-16); Blood Urea Nitrogen 48 mg/dL (8-24); Bun/Creatinine Ratio 34.3 (12.0-20.0); CO2, Blood 28 mmol/L (21-32); Calcium, Blood 8.5 mg/dL (8.5-10.1); Chloride, Blood 110 mmol/L (98-108); Glomerular Filtration Rate 52 (60-); Glucose, Blood 133 mg/dL (70-99); Magnesium, Blood 2.1 mg/dL (1.6-2.4); Phosphorus, Blood 3.6 mg/dL (2.5-4.9); Potassium, Blood 3.6 mmol/L (3.5-5.5); Sodium, Blood 143 mmol/L (136-145)
--- NOTE | 2019-09-19 17:11 | NUR ---
SHIFT SUMMARY PT HAS BEEN CALM TODAY. SARAH HAS VERY SCANT OUTPUT. DISCUSSED THIS WITH DR. PARKS FOR IMAGING TOMORROW. PT STOOD x 2 WITH THERAPY. GRIMACING W/ REPOSITIONING. PT ABLE TO ANSWER SIMPLE ?'S AT TIMES. OTHER TIMES NOT INTERESTED OR NOT COMPREHENDING ?'S.
--- NOTE | 2019-09-19 20:56 | NUR ---
RECEIVED REPORT FROM MONIKA MCCARTHY. PT AWAKE AND RESPONSIVE, CONFUSED. RESTRAINTS REMOVED ONE AT A TIME, RANGE OF MOTION COMPLETED; RESTRAINTS REPLACED.
[2019-09-20 05:13] LABS: Hematocrit 24.1 % (37.0-53.0); Hemoglobin 7.6 g/dL (13.5-17.5)
[2019-09-20 05:34] LABS: Albumin, Blood 1.6 g/dL (3.4-5.0); Anion Gap 7 mmol/L (6-16); Blood Urea Nitrogen 49 mg/dL (8-24); Bun/Creatinine Ratio 33.8 (12.0-20.0); CO2, Blood 26 mmol/L (21-32); Calcium, Blood 8.7 mg/dL (8.5-10.1); Chloride, Blood 109 mmol/L (98-108); Creatinine, Blood 1.45 mg/dL (0.60-1.20); Glomerular Filtration Rate 50 (60-); Glucose, Blood 122 mg/dL (70-99); Magnesium, Blood 2.1 mg/dL (1.6-2.4); Phosphorus, Blood 3.8 mg/dL (2.5-4.9); Potassium, Blood 3.8 mmol/L (3.5-5.5); Sodium, Blood 142 mmol/L (136-145)
--- NOTE | 2019-09-20 06:41 | NUR ---
SHIFT SUMMARY: MAX IS ALERT AND ORIENTED TO SELF AND FOLLOWS DIRECTIONS. HE CONTINUES IN SOFT RESTRAINTS. HE IS NPO, ORAL CARE PROVIDED. PICC TO SAGRARIO PATENT. TPN INFUSING. SMALL BOWEL FOLLOW THROUGH PLANNED FOR TODAY. INCONTINENT BOWEL AND BLADDER, ATTENDS IN PLACE. SCDs IN PLACE. MEPLIEX TO HEELS AND COCCYX. HE RESTED VERY LITTLE THIS SHIFT. EXTREMITIES VERY STIFF TO RANGE OF MOTION. HE IS LYING IN BED WITH THE CALL LIGHT IN REACH. WILL REPORT TO DAY SHIFT RN.
--- NOTE | 2019-09-20 07:18 | NUR ---
HEMOGLOBIN 7.6 THIS AM. NOTIFIED, NO NEW ORDERS AT THIS TIME.
--- NOTE | 2019-09-20 08:20 | NUR ---
TO RADIOLOGY PER BUCK
--- NOTE | 2019-09-20 08:54 | NUR ---
RETURNED FROM RADIOLOGY
--- NOTE | 2019-09-20 14:44 | NUR ---
ng removed per orders
--- NOTE | 2019-09-20 17:44 | NUR ---
SUMMARY PT SLEEPS WHEN UNDISTURBED, DOES ANSWER SOME QUESTIONS WHEN SPOKEN TO . JIMMIE REMOVED FROM ABD. 1/2 INCH CIRCULAR BY 1/4 INCH HIGH AREA APPROX 2 INCHES ABOVE UMBILICUS THAT IS RAISED, SL FIRM AND NON REDDENED.AREA NON TENDER TO TOUCH. PT REPORTS SOME BACK AND RIGHT ARM PAIN WITH MOVEMENT. STOOL SENT FOR LEXIE.
[2019-09-21 05:47] LABS: BASOPHILS ABSOLUTE AUTO 0.09 K/mm3 (0.00-0.23); BASOPHILS PERCENT AUTO 1 % (0-2); EOSINOPHILS ABSOLUTE AUTO 0.09 K/mm3 (0.00-0.68); EOSINOPHILS PERCENT AUTO 1 % (0-6); Hematocrit 23.2 % (37.0-53.0); Hemoglobin 7.2 g/dL (13.5-17.5); IMMATURE GRAN ABSOLUTE AUTO 0.12 K/mm3 (0.00-0.10); IMMATURE GRAN PERCENT AUTO 1 % (0-1); LYMPHOCYTES ABSOLUTE AUTO 1.13 K/mm3 (0.84-5.20); LYMPHOCYTES PERCENT AUTO 9 % (21-46); MONOCYTES ABSOLUTE AUTO 1.58 K/mm3 (0.16-1.47); MONOCYTES PERCENT AUTO 13 % (4-13); Mean Corpuscular HGB 31.7 pg (26.0-34.0); Mean Corpuscular Volume 102 fL (80-100); Mean Platelet Volume 12.6 fL (9.1-12.4); NEUTROPHILS ABSOLUTE AUTO 8.97 K/mm3 (1.96-9.15); NEUTROPHILS PERCENT AUTO 75 % (41-73); Platelet Count 375 K/mm3 (150-400); RDW Coefficient Variation 15.2 % (11.7-14.2); Red Blood Cell Count 2.27 M/mm3 (4.30-5.90); White Blood Cell Count 11.98 K/mm3 (4.00-11.30)
--- NOTE | 2019-09-21 05:50 | NUR ---
SHIFT SUMMARY PT HAS BEEN ALERT AND ORIENTED X1-2 THROUGHOUT THE SHIFT. PT RESPONDS TO QUESTIONS. SPEECH IS DIFFICULT TO UNDERSTAND AT TIMES BUT PT SEEMS TO UNDERSTAND WHAT STAFF SAY AND FOLLOWS DIRECTIONS WELL. PT SAID HE FEELS MUCH BETTER WITHOUT THE NG TUBE AND RESTRAINTS AND THAT HE HAD A MUCH BETTER NIGHT LAST NIGHT. PT WAS MED X1 FOR PAIN; SEE EMAR. PT HAS BEEN INCONTINENT AND CHANGED FREQUENTLY DURING THE SHIFT. PT REPOSITIONED APPROX Q2 HRS. NO ACUTE CHANGES OVERNIGHT.
[2019-09-21 06:08] LABS: Albumin, Blood 1.5 g/dL (3.4-5.0); Anion Gap 7 mmol/L (6-16); Blood Urea Nitrogen 51 mg/dL (8-24); Bun/Creatinine Ratio 32.9 (12.0-20.0); CO2, Blood 27 mmol/L (21-32); Calcium, Blood 8.2 mg/dL (8.5-10.1); Chloride, Blood 109 mmol/L (98-108); Creatinine, Blood 1.55 mg/dL (0.60-1.20); Glomerular Filtration Rate 46 (60-); Glucose, Blood 147 mg/dL (70-99); Sodium, Blood 143 mmol/L (136-145)
[2019-09-21 13:53] LABS: Stool Occult Blood Guaiac 1 Pos (Neg)
--- NOTE | 2019-09-21 18:23 | NUR ---
Shift Summary A/O to self. Family has been in and out. Redness, warmth, and mild swelling noted on R elbow, Dr. Power notified. Orders placed. Barrium swallow completed today, patient remains NPO with TPN @ 85 mLs/hr. PT/OT worked with patient today, minimal progress. Denies pain, nausea, diarrhea. PICC line draws good. Dr. Power aware of Hgb 7.2 this AM, to be monitored. No signs of bleeding. Copy of Advanced Directive placed in front of chart. 2p max assist, TQ2.
--- NOTE | 2019-09-21 23:03 | NUR ---
BEDBATH COMPLETED, ALL MEPILEX'S / HEEL PROTECTORS CHANGED, LINENS CHANGED, HAIR SHAMPOO COMPLETE WITH SHAMPOO CAP. LEGS ELEVATED WITH HEELS FLOATED.
[2019-09-22 03:33] LABS: BASOPHILS ABSOLUTE AUTO 0.07 K/mm3 (0.00-0.23); BASOPHILS PERCENT AUTO 1 % (0-2); EOSINOPHILS ABSOLUTE AUTO 0.22 K/mm3 (0.00-0.68); EOSINOPHILS PERCENT AUTO 2 % (0-6); Hematocrit 24.2 % (37.0-53.0); Hemoglobin 7.5 g/dL (13.5-17.5); IMMATURE GRAN ABSOLUTE AUTO 0.16 K/mm3 (0.00-0.10); IMMATURE GRAN PERCENT AUTO 1 % (0-1); LYMPHOCYTES ABSOLUTE AUTO 1.43 K/mm3 (0.84-5.20); LYMPHOCYTES PERCENT AUTO 12 % (21-46); MONOCYTES ABSOLUTE AUTO 1.57 K/mm3 (0.16-1.47); MONOCYTES PERCENT AUTO 13 % (4-13); Mean Corpuscular HGB 32.1 pg (26.0-34.0); Mean Corpuscular Volume 103 fL (80-100); NEUTROPHILS ABSOLUTE AUTO 8.57 K/mm3 (1.96-9.15); NEUTROPHILS PERCENT AUTO 71 % (41-73); Platelet Count 371 K/mm3 (150-400); RDW Coefficient Variation 15.1 % (11.7-14.2); RDW Standard Deviation 56.7 fL (35.1-46.3); Red Blood Cell Count 2.34 M/mm3 (4.30-5.90); White Blood Cell Count 12.02 K/mm3 (4.00-11.30)
[2019-09-22 03:48] LABS: Albumin, Blood 1.5 g/dL (3.4-5.0); Anion Gap 6 mmol/L (6-16); Blood Urea Nitrogen 50 mg/dL (8-24); Bun/Creatinine Ratio 33.1 (12.0-20.0); CO2, Blood 27 mmol/L (21-32); Calcium, Blood 8.3 mg/dL (8.5-10.1); Chloride, Blood 110 mmol/L (98-108); Creatinine, Blood 1.51 mg/dL (0.60-1.20); Glomerular Filtration Rate 48 (60-); Glucose, Blood 135 mg/dL (70-99); Magnesium, Blood 2.1 mg/dL (1.6-2.4); Phosphorus, Blood 4.4 mg/dL (2.5-4.9); Potassium, Blood 4.3 mmol/L (3.5-5.5); Sodium, Blood 143 mmol/L (136-145)
--- NOTE | 2019-09-22 04:32 | NUR ---
SHIFT SUMMARY PT A/O X1 DURING THE SHIFT. RESPONDS TO VERBAL STIMULI BUT DOES NOT ANSWER MOST QUESTIONS APPROPRIATELY. PAIN MANAGED WITH IV PAIN MED PRN PER ORDERS. PT REPOSITIONED AND CHANGED MULT TIMES DURING THE SHIFT. NO ACUTE CHANGES.
--- NOTE | 2019-09-22 15:07 | NUR ---
Met with patient and his family this morning. pt somulent and slighly labored in his respirations. Had a meeting with patients son who is his POA and patients SO and resident care aide adry Hall. Review of doctor spences note and assessment of pt and reccomendations and review of barium swallow evaluation. We also reviewed the patients past year of life and how he has been trending. Patients family states he has been significanlty slowing down. He has not been eating for quite some time, sleeps most of the time and displaying more aggitaion and increasing memory loss. Reviewed three levels of plan. Placment of peg tube, placing a temporary feeding tube and attempting some rehab and hospice. Review that with his dementia and mental status and general health a peg tube is usually not reccomended as a quality plan for his life. At patient last admission the family spoke with Logan Newton from the palliative care department they discussed when to draw the line and go on hospice. We carefully reviewed some of the possible symptoms need she will have with his decline and airway managment needs. Wih the new information on his swallow and the noted decline they are accepting of hospice. They feel he would need placment that his SO cannot manage it at home. commercial center manager is facilitating a plan . pt FAST score is 7d.
--- NOTE | 2019-09-22 18:24 | NUR ---
Shift summary Patient placed on comfort care measures today. Family has been at bedside throughout the day offering support. Patient has been sleeping off an on throughout the day. Patient responsive to verbal stimuli. TPN discontinued.
--- NOTE | 2019-09-22 21:50 | NUR ---
COMFORT CARE UPDATE PT STATES HE IS COMFORTABLE AND DOES NOT WANT TO BE REPOSITIONED. HE ALSO REFUSED REPOSITIONING AT 1930 TODAY. PT APPEARS COMFORTABLE WITH NO SIGNS OF AGITATION OR DISTRESS. IS A/O TO SELF AND LOCATION. HAS CALL LIGHT IN REACH.
--- NOTE | 2019-09-23 02:27 | NUR ---
COMFORT CARE PT MEDICATED FOR PAIN PER HIS REQUEST, STATING "I NEED SOMETHING FOR PAIN, MY LEFT ELBOW HURTS NOW." PT ALSO REQUESTED SIPS OF COLD WATER, WHICH WAS PROVIDED FOR HIM. ATTENDS CHANGED AND PT REPOSITIONED AT THIS TIME. HAS CALL LIGHT IN REACH. DENIES OTHER NEEDS. APPEARS TO BE NOW RESTING COMFORTABLY IN BED WITH EYES CLOSED AFTER MED ADMINISTRATION.
--- NOTE | 2019-09-23 03:50 | NUR ---
SHIFT SUMMARY ON COMFORT CARE. MEDICATED X1 FOR PAIN, PER PT REQUEST FOR LEFT ELBOW. REPOSTIONED Q2 WITH 2 PERSON MAX. VOIDING OFTEN; ATTENDS CHANGED PRN. SIPS OF WATER PROVIDED TO PT PER HIS REQUEST, ZAIN WELL. RESPONDS TO VERBAL STIMULI, AWAKENS EASILY. APPEARS TO HAVE SLEPT T/O MOST OF SHIFT. IS CURRENTLY RESTING IN BED WITH CALL LIGHT IN REACH. WILL CONT TO MONITOR AND GIVE REPORT TO ONCOMING RN.
[2019-09-23 04:55] LABS: Hemoglobin 8.5 g/dL (13.5-17.5)
--- NOTE | 2019-09-23 05:24 | NUR ---
COMFORT CARE UPDATE PT RESTING COMFORTABLY IN BED, DENIES NEED FOR PAIN MEDICATION. REPOSITIONED AND ATTENDS CHANGED. SIPS OF ROOTBEER PROVIDED PER PT REQUEST, PT ZAIN WELL. NO SIGNS OF DISTRESS NOTED. WILL CONT TO MONITOR.
[2019-09-23 05:25] LABS: Albumin, Blood 1.7 g/dL (3.4-5.0); Anion Gap 5 mmol/L (6-16); Blood Urea Nitrogen 48 mg/dL (8-24); Bun/Creatinine Ratio 32.9 (12.0-20.0); CO2, Blood 27 mmol/L (21-32); Calcium, Blood 8.5 mg/dL (8.5-10.1); Chloride, Blood 110 mmol/L (98-108); Creatinine, Blood 1.46 mg/dL (0.60-1.20); Glomerular Filtration Rate 50 (60-); Glucose, Blood 99 mg/dL (70-99); Magnesium, Blood 2.1 mg/dL (1.6-2.4); Phosphorus, Blood 4.1 mg/dL (2.5-4.9); Potassium, Blood 4.8 mmol/L (3.5-5.5); Sodium, Blood 142 mmol/L (136-145)
--- NOTE | 2019-09-23 07:19 | NUR ---
Patient lying in bed. Patient alert and answering RN appropiately this morning. Blankets adjusted on bed and patient repositioned. TV volume turned on per patient request. Patient appears comfortable.
--- NOTE | 2019-09-23 09:50 | NUR ---
Family at bedside
--- NOTE | 2019-09-23 17:00 | NUR ---
Shift summary No acute changes this shift. Family at bedside throughout the day offering support. Patient responds to verbal stimuli. Patient has been sleeping most of the day. Patient has appeared comfortable. Linen change/bed bath completed this morning.
--- NOTE | 2019-09-23 22:58 | NUR ---
PT RESTING WITH TELEVISION ON. DRINKING SMALL AMNTS ROOT BEER PER HIS REQUEST.
--- NOTE | 2019-09-24 07:15 | NUR ---
Patient sleeping. Appears comfortable. Music playing.
--- NOTE | 2019-09-24 16:26 | NUR ---
Shift summary No acute changes this shift. Patient has appeared comfortable. Family has been in the room at bedside throughout the day offering support. Patient has been alert and responding appropiately to questions. Patient voiding into urinal - incontinent at times - brief in place.
--- NOTE | 2019-09-24 20:28 | NUR ---
PT AWAKE IN BED, DENIES PAIN. ATTENDS CHANGED. EDMOND AND ORAL CARE COMPLETED. PT REPOSITIONED, DENIES ADDITIONAL NEEDS AT THIS TIME. CALL LIGHT IN REACH, BED ALARM ON.
--- NOTE | 2019-09-25 07:31 | NUR ---
PT HAD NO ACUTE CHANGES T/O NIGHT. PT A/O X2, IS SLOW TO FOLLOW DIRECTIONS. PT NPO PER ORDERS, ORAL CARE PRN T/O NIGHT. PT INCONTINENT, ATTENDS CHANGED PRN. BED ALARM ON FOR SAFETY. REP GIVEN TO DAY RN.
--- NOTE | 2019-09-25 14:02 | NUR ---
Review of change in plan of cre with phsycian, chaplian and speech therapist. Afew hollietpts to see pt but he has been sleeping. Had belia meet with family for stress reduction. will see how he does with speech and attemtp conversation with pt.
--- NOTE | 2019-09-25 16:06 | NUR ---
SHIFT SUMMARY CODE STATUS AND TREATMENT PLAN UPDATED THIS SHIFT. FAMILY AWARE OF NEW PLAN. PT ALERT AND ORIENTED X2-3 WITH OCCASSIONAL CONFUSION. REORIENTED EASILY AND PT COOPERATIVE. BED ALARM IN PLACE FOR SAFETY. PT ABLE TO SWALLOW THIN LIQUIDS WITH NO CHOKING OR COUGHING NOTED. REPEAT SWALLOW EVAL SCHEDULED FOR 09/25. CLINIMIX + LIPIDS PER ORDERS. PICC LINE TO SAGRARIO WNL. REPOSITIONING Q2-3H. PT INCONTINENT MOSTLY, BUT CAN USE URINAL WITH ASSISTANCE. PT/OT EVAL. ROXANOL FOR PAIN PRN. FAMILY AT BEDSIDE FOR SUPPORT. CALL LIGHT WITHIN REACH.
--- NOTE | 2019-09-25 16:18 | NUR ---
Initial spiritual care note: I met with pt's son, Jamel, and SO, Dori, outside of room. They are known to me from Lowell's previous admissions and we have a good rapport. Jamel tells me he is very concerned about his dad. He says he has witnessed clinicians asking Max questions in rapid-fire style--not allowing Max time to process. Jamel beleives his dad would respond with more clarity if things were explained slowly and carefully. Jamel and Dori understand that Lowell can no longer care for himself. They also tell me that this is something Lowell does not understand "because no one has told him." This, they beleive, would be a "game-changer" for Lowell. Jamel states that he is convinced his dad changed his code status to Full-code so "he can go home and drink." Dori says she can no longer provide care. Both are emotionally overwhelmed and very worried. They responded well to gentle baby counselor and assurance that I would put their concerns in my note in the hope that someone would pay attention. Provided affirmation of love and prayer. I will remain available.
[2019-09-26 04:00] LABS: BASOPHILS ABSOLUTE AUTO 0.08 K/mm3 (0.00-0.23); BASOPHILS PERCENT AUTO 1 % (0-2); EOSINOPHILS PERCENT AUTO 3 % (0-6); Hemoglobin 8.6 g/dL (13.5-17.5); IMMATURE GRAN ABSOLUTE AUTO 0.32 K/mm3 (0.00-0.10); IMMATURE GRAN PERCENT AUTO 2 % (0-1); LYMPHOCYTES ABSOLUTE AUTO 1.53 K/mm3 (0.84-5.20); LYMPHOCYTES PERCENT AUTO 9 % (21-46); MONOCYTES ABSOLUTE AUTO 1.91 K/mm3 (0.16-1.47); MONOCYTES PERCENT AUTO 12 % (4-13); Mean Corpuscular HGB 31.9 pg (26.0-34.0); Mean Corpuscular HGB Conc 30.7 g/dL (31.5-36.5); Mean Corpuscular Volume 104 fL (80-100); Mean Platelet Volume 11.6 fL (9.1-12.4); NEUTROPHILS PERCENT AUTO 73 % (41-73); Platelet Count 425 K/mm3 (150-400); RDW Coefficient Variation 14.1 % (11.7-14.2); RDW Standard Deviation 53.6 fL (35.1-46.3); White Blood Cell Count 16.24 K/mm3 (4.00-11.30)
[2019-09-26 04:17] LABS: Albumin, Blood 1.8 g/dL (3.4-5.0); Anion Gap 6 mmol/L (6-16); Blood Urea Nitrogen 57 mg/dL (8-24); Bun/Creatinine Ratio 40.4 (12.0-20.0); CO2, Blood 25 mmol/L (21-32); Chloride, Blood 108 mmol/L (98-108); Creatinine, Blood 1.41 mg/dL (0.60-1.20); Glomerular Filtration Rate 52 (60-); Glucose, Blood 151 mg/dL (70-99); Phosphorus, Blood 4.3 mg/dL (2.5-4.9); Potassium, Blood 3.7 mmol/L (3.5-5.5); Sodium, Blood 139 mmol/L (136-145)
--- NOTE | 2019-09-26 04:21 | NUR ---
SHIFT SUMMARY POD 23 S/P NEHA PATCH REPAIR/PERF BOWEL. PT A/OX2-3. HR ELEVATED IN 100'S AT TIMES; DENIED PAIN OR NEED FOR PAIN MEDICATION T/O SHIFT. TURNED Q2-3HRS; BLE ELEVATED ON PILLOWS. INCONT OF VOIDING BUT ABLE TO USE URINAL OCCASIONALLY WITH ASSISTANCE. CLINIMIX AND LIPIDS INFUSING PER ORDERS. PICC IN SAGRARIO, DRAWS EASILY. PT APPEARS TO HAVE RESTED WELL. WILL CONT TO MONITOR AND GIVE REPORT TO ONCOMING RN.
--- NOTE | 2019-09-26 11:38 | NUR ---
UPDATED FAMILY ON TREATMENT PLAN.
--- NOTE | 2019-09-26 16:35 | NUR ---
SHIFT SUMMARY NO ACUTE CHANGES. PT CONT TO BE CONFUSED INTERMITTENTLY, BUT HAS BEEN COOPERATIVE AND PLEASANT THIS SHIFT. SWALLOW EVAL COMPLETED TODAY. PT STRICTLY NPO. ROXANOL FOR PAIN PER ORDERS. PT DID BETTER WITH PT/OT TODAY. CLINIMIX INFUSING PER ORDERS. PICC LINE DRESSING CHANGED THIS SHIFT. PALLIATIVE CARE AND CARE MANAGEMENT COMMUNICATING AND WORKING WITH FAMILY ABOUT FURTHER TREATMENT PLANS AND DISCHARGE PLANNING. BED ALARM IN PLACE FOR SAFETY AND CALL LIGHT WITHIN REACH.
--- NOTE | 2019-09-26 17:56 | NUR ---
Routine spiritual care note: Lowell was alone in room and had just finished working with PT. He states that he fully expects to get strong enough to return home, and that he is willing to do the work to make that happen. He complained about his son and SO "giving up one me" and appeared to be angry that both had their own lives that needed attention. Lowell appears somewhat unrealistic in his expectations and both Dori and Jamel told me yesterday they could no longer care for Lowell. It is unclear to me that they have told him this yet. Regardless, Lowell appeared to appreciate encouragement, but was also very tired. I will remain available to pt and family.
--- NOTE | 2019-09-26 18:16 | NUR ---
Met with patient family and speech therapist Annalisa Baig. Annalisa presented carefull review of and comparison of both barium studies. She carefully explained the improvement and the decline. She then carefully reviewed his cognative reponse and abilites during the exam. We then reviewed his comorbid conditions and again reviewed his function and abilites the past few months. Pt son had many questions and hed some distress in making the right decision. We then reviewed his advance directive. Pt Significant other feels he has shown great decline in the past year and hospice would be the kindes and appropiate plan but want son to make the decision. We discussed pt ability to clearly uncersatnd discussiond of plan of care may be declining. Discussed quality of life and patients expressed wishes when he was healthier and able to participate. Met with family late to let them know updated the hospitalist and staff and that support the decision.will finish IV nutrition. updated foster care case manager plan is hospice team to come see pt tomorrow and plan placement. Will monitor pt closely hope is he can have some good alert days that he can spend with family and his dearest friend.
--- NOTE | 2019-09-26 18:32 | NUR ---
PALLIATIVE CARE RN VERBALIZED THAT PT IS ON COMFORT CARE AGAIN PER DR. NGUYEN. PALLIATIVE CARE TO UPDATE ORDER. CONTINUE IV NUTRITION TONIGHT AND ORDERS WILL BE DC'D TOMORROW.
--- NOTE | 2019-09-26 18:38 | NUR ---
discussion with family on code status. They want DNR and feel in aligns with his Advance directive.
--- NOTE | 2019-09-26 18:40 | NUR ---
pt resting twitchin at time. Family voisited with pt and had therputic time then went home. They will be available for hospice eval tomorrow.
--- NOTE | 2019-09-26 19:09 | NUR ---
DNR ORDER VERIFIED WITH LISANDRA FRANK. DNR BRACELET PLACED TO LEFT WRIST.
--- NOTE | 2019-09-26 23:43 | NUR ---
ASSUMED PT CARE FROM MONIKA OTERO AT 1900 PT RECENTLY CHANGED TO COMFORT CARE TODAY. PER REPORT; PALLIATIVE CARE TO ENTER IN COMFORT CARE ORDERS. CLINIMIX INFUSING AT 90MLS/HR VIA PICC TO SAGRARIO; HOWEVER, ONCE BAG IS COMPLETE CLINIMIX TO BE DISCONTINUED PER REPORT. HOWEVER, NO ORDERS WERE ENTERED; THEREFORE, WILL HAVE RN FOLLOW UP WITH PCP/PALLIATIVE TOMORROW REGARDING ORDER SETS. ENRIQUE DEJESUS WAS CALLED D/T PT HAVING ROXONAL 5MG AVAILABLE EVERY 8 HOURS NEEDED. NEW ORDERS TO CHANGE FREQUENCY TO EVERY 1 HOUR. SON AT BEDSIDE AND VERY COOPERATIVE AND APPRECIATIVE OF CARES. STATES PLAN IS TO [facility] TO H[facility]ICE. PT CONTINUES TO BE ASSESSED/REPOSITIONED EVERY TWO HOURS AND NEEDED FOR COMFORT.
--- NOTE | 2019-09-27 00:50 | NUR ---
CALL OUT TO HOSPITALIST IN REGARDS TO COMFORT CARE MEDICATIONS.
--- NOTE | 2019-09-27 01:21 | NUR ---
DR. SALINAS NEW ORDERS FOR ATIVAN 1MG IV Q6 PRN
--- NOTE | 2019-09-27 05:36 | NUR ---
END OF SHIFT SUMMARY NO SIGNIFICANT CHANGES T/O NIGHT. PT MEDICATED WITH ROXONAL 5MG SL X2 THIS SHIFT, WELL ONCE WITH ATIVAN 1MG IV PRN. ATIVAN APPEARED MORE EFFECTIVE THAN ROXONAL. PT ABLE TO GET SOME REST AFTER ATIVAN ADMINISTRATION. CONTINENT X2 THIS SHIFT; OTHERWISE, INCONTINENT. CHANGED AND REPOSITIONED EVERY TWO HOURS. PT REMAINS WITH BILATERAL HEEL PROTECTORS, WELL MEPILEX TO COCCYX. NO OPEN AREAS NOTED; HOWEVER, SKIN IS VERY HIGH RISK FOR BREAKDOWN D/T INCONTINENCE, WELL PT BEING RESTLESS IN BED WITH HIGH RISK FOR SHEARING FORCE. WILL CONTINUE TO MONITOR UNTIL REPORT IS HANDED OFF TO ONCOMING RN.
--- NOTE | 2019-09-27 07:59 | NUR ---
pt awake assisted to use urinal reposistioned to the right elev legs on pillow
--- NOTE | 2019-09-27 09:16 | NUR ---
dr ayala by to see pt talking with the son re tx comfort care and his cond
--- NOTE | 2019-09-27 11:00 | NUR ---
pt given 5mg roxanol sl pt getting restless pt son and s/o at bedside stated [facility]
--- NOTE | 2019-09-27 12:08 | NUR ---
pt turned meds given earlier pt was sleeping before turning
--- NOTE | 2019-09-27 13:32 | NUR ---
assisted pt with urinal pt attends dry at this time pt was resting
--- NOTE | 2019-09-27 15:25 | NUR ---
PT SLEEPING PT'S SON TALKING WITH SS PLAN FOR TRANSFER TO [facility] TOMORROW
--- NOTE | 2019-09-27 16:09 | NUR ---
pt voided another 50ml and had some in the attends reposistioned
--- NOTE | 2019-09-27 19:21 | NUR ---
pt resting with brief periods of restlessness. plan is to hospice care tomorrow
--- NOTE | 2019-09-28 04:20 | NUR ---
SHIFT SUMMARY PT RESTING IN BED T/O NIGHT, MEDICATED FOR PAIN X1, DENIED PAIN OTHERWISE. REPOSITIONED Q2 PT TOLERATED. DENIES SOB. SON WAS AT BEDSIDE BEGINNING OF SHIFT. PLAN IS FOR PT TO [facility] TO [facility] TODAY IN THE MORNING.
--- NOTE | 2019-09-28 10:22 | NUR ---
PT CHANGED AND REPOSITIONED. PT PAINFUL ON TURNING, DENIES PAIN AT REST. PT MEDICATED FOR ANXIETY.
--- NOTE | 2019-09-28 11:29 | NUR ---
PAL CARE COMFORT CARE VISIT - CASE CONFERENCE WITH PT'S RN PRIOR TO ENTERING ROOM. PT IS DUE TO BE DISCHARGED TO FACILITY AND HOSPICE CARE IN THE NEXT HOUR. RN HAD MEDICATED FOR COMFORT PER eMAR. LIBRARY ASSISTANT AT THE BEDSIDE AND FINISHING A VISIT WITH PT'S SON, CHRIS AND ANOTHER FAMILY MEMBER I CAME IN. PT WITH EYES PARTIALLY OPEN BUT NOT TRACKING. HE HAS SL COARSE BREATHING. HE DID NOT RESPOND TO VOICE BUT WHEN I I PUT MY COLD HAND ON HIS ARM HE DID FLINCH INITIALLY. TIME SPENT ENCOURAGING AND SUPPORTING FAMILY. THEY EXPRESSED APPRECIATION FOR PT'S CARE FROM DRS AND STAFF DURING THIS LENGHTY STAY.
--- NOTE | 2019-09-28 11:58 | NUR ---
DISCHARGE NOTE PT DISCHARGED TO [facility]. PT TRANSPORTED VIA [facility]. PT ALERT TO SELF AND FAMILY THIS SHIFT. PT'S FAMILY IN THE ROOM FOR MOST OF THIS SHIFT. PT MEDICATED FOR AGITATION PRIOR TO TRANSPORT. PT CHANGED PRIOR TO TRANSPORT. PT BELONGINGS WITH FAMILY UPON DISCHARGE. PICC LINE REMOVED BY LUL FRANK. REPORT CALLED TO CARLOS FRANK AT [facility].
--- NOTE | 2019-09-28 17:46 | NUR ---
Routine spiritual care note: Met with pt's son, Jamel and his . Pt's SO, Dori, was also present. Max was non-responsive, breaths shallow and uneven. He appeared comfortable. Provided gentle senior counsel commercial and affirmation of family decision for hospice path. I also prayed with family for peaceful transition. Son expressed gratitude for compassionate care by [facility] staff.
== END 2019-09-28 11:58 | DRG 326 ==
LOC: ER 16:30 → SURS 20:43 → PCU 20:43 → ICUW 20:43 → PCU 21:18 → SURS 09-04 15:10 → ICUW 09-08 19:25 → SURS 09-12 13:32
PROVIDERS: Internal Medicine; Internal Medicine Nephrology; Nurse Practitioner Acute Care; Student in an Organized Health Care Education/Training Program; Surgery; ADMIT Internal Medicine
PROC: 0DU607Z Supplement Stomach with Autologous Tissue Substitute, Open Approach (ICD-10-PCS; principal; 2019-09-03 10:00)
PROC: 02HV33Z Insertion of Infusion Device into Superior Vena Cava, Percutaneous Approach (ICD-10-PCS; 2019-09-06)
DX: K25.5 Chronic or unspecified gastric ulcer with perforation (principal); I21.4 Non-ST elevation (NSTEMI) myocardial infarction; N17.9 Acute kidney failure, unspecified; I50.32 Chronic diastolic (congestive) heart failure; C64.9 Malignant neoplasm of unspecified kidney, except renal pelvis; I48.92 Unspecified atrial flutter; E87.1 Hypo-osmolality and hyponatremia; E87.2 Acidosis; F10.239 Alcohol dependence with withdrawal, unspecified; F10.27 Alcohol dependence with alcohol-induced persisting dementia; Z20.828 Contact with and (suspected) exposure to other viral communicable diseases; I45.10 Unspecified right bundle-branch block; Z90.5 Acquired absence of kidney; Z90.79 Acquired absence of other genital organ(s); J45.909 Unspecified asthma, uncomplicated; E83.42 Hypomagnesemia; E88.09 Other disorders of plasma-protein metabolism, not elsewhere classified; E86.9 Volume depletion, unspecified; D69.6 Thrombocytopenia, unspecified
CPT/HCPCS: 36415; 36569; 36600; 51702; 70450; 71045; 73080; 74018; 74176; 74230; 74240; 80048; 80053; 80069; 81001; 82140; 82272; 82607; 82728; 82746; 82803; 82947; 83540; 83550; 83605; 83735; 83880; 84100; 84443; 84478; 84484; 85014; 85018; 85025; 85379; 85610; 85651; 85730; 86140; 86850; 86900; 86901; 87070; 87077; 87186; 87205; 87338; 88305; 88342; 92526; 92611; 93005; 93010; 93308; 93321; 94640; 94760; 94762; 96374; 97110; 97112; 97116; 97162; 97167; 97168; 97530; 99285-25; A9270; A9270-GY; C1751; C9113; J0360; J0610; J0694; J0881; J1100; J1644; J1650; J1940; J2060; J2270; J2370; J2405; J2543; J2704; J2916; J3010; J3411; J3475; J3480; J7042; J7050; J7070; J7120; U0002